=== PATIENT | female | born 1940 | race African-American/Black ===

== ENCOUNTER → 2016-06-01 | Outpatient (CLI) | payer MEDICARE, MEDICAID ==
[~2016-06-01] MED LIST: ACULAR 3 ML3 ML; ADALAT CC30 MG PO; AFRIN 15 ML15 ML NAS; ALBUTEROL0.09 MG/A1 IH; ALDACTONE 25MG25 M1 PO; ALDACTONE PO; ANTIVERT 25MG25 MG PO; BONINE25 MG PO; CLARITIN 1010 MG/TAB PO; FERROUS SU325 MG/TAB PO; FLONASE NASAL S16 GM NS; FLONASEALLERGY NS; FOLIC ACID PO; GLUCOPHAGE500 MG/TAB PO; GLUCOTROL 5M5 MG/TAB PO; IBU800 M1 PO; LOMOTIL 0.025 M1 TAB PO; MAXITROL OPHTH3.5 GM OP; MOTRIN 800800 MG/TAB PO; NEURONTIN100 MG/CAP PO; NORCO 325 MG-51 TAB PO; OCUFLOX OPHTH DR5 ML; OCUFLOX OPHTH DR5 ML OP; OMNIPRED 5 ML5 ML; PHENERGAN 25 TA25 MG PO; PREDNISONE20 MG PO; PRILOSEC 20MG20 MG PO; PRILOSEC10 MG PO; PROAIR HFA0.09 MG/AC IH; PROBIOTIC ACID1 EAC3 PO; PROBIOTIC FORMU1 CAP PO; PROCARDIA XL 3030 MG PO; PROCARDIA10 MG PO; PROVENTIL0.09 MG/A1 IH; REGLAN 10MG10 MG/TAB PO; REMERON 15M15 MG/TA1 PO; SINGULAIR 110 MG/TAB PO; SLOW-MAG 106 MG1 ECT PO; SYNTHROID 0.0.025 MG PO; SYNTHROID0.05 MG/TA PO; ULTRAM 50MG TAB50 MG PO; VANCOCIN H125 MG/CAP PO; VITAMIN C250250 MG PO; VITAMIN D32000 I1 PO; VITAMIN D32000 IU PO; ZANTAC 150MG T150 MG PO; ZITHROMAX 250M250 MG PO
== END ==
LOC: COL.RAD 08:54
DX: M75.82 Other shoulder lesions, left shoulder (principal); M19.012 Primary osteoarthritis, left shoulder; S46.812A Strain of other muscles, fascia and tendons at shoulder and upper arm level, left arm, initial encounter

== ENCOUNTER 2016-07-05 12:42 | Inpatient (IN) | payer MEDICARE, MEDICAID ==
[~2016-07-05] VITALS: Ht 157.5 cm; Wt 67.8 kg
[~2016-07-05 12:42] MED LIST changes: -ACULAR 3 ML3 ML; -ADALAT CC30 MG PO; -AFRIN 15 ML15 ML NAS; -BONINE25 MG PO; -CLARITIN 1010 MG/TAB PO; -FLONASE NASAL S16 GM NS; -GLUCOTROL 5M5 MG/TAB PO; -IBU800 M1 PO; -LOMOTIL 0.025 M1 TAB PO; -MAXITROL OPHTH3.5 GM OP; -OCUFLOX OPHTH DR5 ML; -OCUFLOX OPHTH DR5 ML OP; -OMNIPRED 5 ML5 ML; -PREDNISONE20 MG PO; -PROAIR HFA0.09 MG/AC IH; -PROBIOTIC ACID1 EAC3 PO; -PROBIOTIC FORMU1 CAP PO; -PROVENTIL0.09 MG/A1 IH; -REGLAN 10MG10 MG/TAB PO; -SINGULAIR 110 MG/TAB PO; -ULTRAM 50MG TAB50 MG PO; -VANCOCIN H125 MG/CAP PO; -VITAMIN D32000 I1 PO; -VITAMIN D32000 IU PO; -ZANTAC 150MG T150 MG PO
[2016-07-05 13:30] LABS: HEMATOCRIT 34.3 % (37.0-47.0); HEMOGLOBIN 11.2 g/dl (12.5-16.0); MEAN CELL VOLUME 91 fl (80.0-100.0); MEAN CORPUSCULAR HEMOGLOBIN 30 pg (27.0-31.0); MEAN CORPUSCULAR HGB CONC 33 g/dl (33.0-37.0); MEAN PLATELET VOLUME 9.4 fl (7.4-10.4); PLATELET COUNT 355 K/mm3 (130-400); RED BLOOD COUNT 3.76 M/mm3 (4.10-5.30); REDCELL DISTRIBUTION WIDTH-CV 13.2 % (11.5-14.5); WHITE BLOOD COUNT 8.3 K/mm3 (4.8-10.8)
[2016-07-05 13:31] LABS: ADD PATHOLOGY DIFF REVIEW NO
[2016-07-05 13:40] LABS: BAND 7 % (0-10); BASOPHIL 1 % (0-2); NEUTROPHILS 77 % (42.0-75.2); TOTAL CELLS COUNTED 100
[2016-07-05 13:41] LABS: HYPOCHROMIA 1+
[2016-07-05 13:50] LABS: ALBUMIN 3.9 gm/dL (3.5-5.0); BILIRUBIN,TOTAL 0.8 mg/dL (0.0-1.0); C-REACTIVE PROTEIN 6.9 mg/dL (0.0-0.9); CALCIUM 8.9 mg/dL (8.4-10.2); CREATININE, serum 0.8 mg/dL (0.52-1.25); POTASSIUM 3.4 mmol/L (3.4-5.0); TOTAL PROTEIN 7.5 gm/dL (6.4-8.2)
[2016-07-05 14:40] LABS: PH 5 (5-8); SQUAMOUS EPITHELIAL 0-2 /hpf; URINE APPEARANCE Clear; URINE BACTERIA Rare /hpf; URINE BILIRUBIN Negative (NEGATIVE); URINE BLOOD 1+ (NEGATIVE); URINE COLOR Yellow; URINE GLUCOSE Negative (NEGATIVE); URINE KETONE Trace (NEGATIVE); URINE UROBILINOGEN Negative (NEGATIVE)
[2016-07-05] MEDS ORDERED: PROVENTIL0.09 MG/A1 IH (14:48)
[2016-07-05] MEDS ORDERED: FLONASE NASAL S16 GM NS (14:49)
[2016-07-05] MEDS ORDERED: VITAMIN D32000 IU PO (14:49)
[2016-07-05] MEDS ORDERED: ZANTAC 150MG T150 MG PO (14:53)
[2016-07-05] MEDS ORDERED: PROCARDIA XL 3030 MG PO (14:53)
[2016-07-05 16:58] VITALS: BP 133/52; PULSE 89; TEMP 99.9
[2016-07-05 20:24] VITALS: BP 145/50; PULSE 77; TEMP 98.6
[2016-07-05 22:21] LABS: MAGNESIUM 1.5 mg/dL (1.6-2.3)
[2016-07-06 00:09] VITALS: BP 144/50; PULSE 69; TEMP 98
[2016-07-06 04:01] VITALS: BP 152/54; PULSE 84; TEMP 98.6
[2016-07-06 07:50] LABS: MEAN CELL VOLUME 92 fl (80.0-100.0); MEAN CORPUSCULAR HGB CONC 32 g/dl (33.0-37.0); MEAN PLATELET VOLUME 9.1 fl (7.4-10.4); PLATELET COUNT 308 K/mm3 (130-400); REDCELL DISTRIBUTION WIDTH-CV 13.2 % (11.5-14.5); WHITE BLOOD COUNT 6.6 K/mm3 (4.8-10.8)
[2016-07-06 07:54] VITALS: BP 139/47; PULSE 68; TEMP 98.2
[2016-07-06 08:08] LABS: HEMATOCRIT 26.6 % (37.0-47.0); HEMOGLOBIN 8.6 g/dl (12.5-16.0); MEAN CORPUSCULAR HEMOGLOBIN 30 pg (27.0-31.0)
[2016-07-06 08:09] LABS: ADD PATHOLOGY DIFF REVIEW NO
[2016-07-06 08:10] LABS: ADJUSTED CALCIUM 8.8 mg/dL (8.4-10.2); ALBUMIN 2.9 gm/dL (3.5-5.0); BILIRUBIN,TOTAL 0.5 mg/dL (0.0-1.0); CALCIUM 7.9 mg/dL (8.4-10.2); CREATININE, serum 0.75 mg/dL (0.52-1.25); POTASSIUM 3.2 mmol/L (3.4-5.0); TOTAL PROTEIN 5.5 gm/dL (6.4-8.2)
[2016-07-06 08:40] LABS: THYROID STIMULATING HORMONE 1.26 uIU/mL (0.465-4.680)
[2016-07-06 10:08] LABS: BAND 35 % (0-10); DOHLE BODIES PRESENT; EOSINOPHIL 4 % (0-4); MYELOCYTE 1 % (0-0); NEUTROPHILS 30 % (42.0-75.2); PLATELET ESTIMATE NORMAL (NORMAL); TOTAL CELLS COUNTED 100; TOXIC GRANULATION PRESENT
[2016-07-06 11:30] VITALS: BP 125/41; PULSE 60; TEMP 98.8
[2016-07-06 12:44] LABS: RETIC % 1.5 % (0.5-3.52)
[2016-07-06 15:07] VITALS: BP 137/49; PULSE 66; TEMP 98.1
[2016-07-06 19:21] VITALS: BP 122/84; PULSE 61; TEMP 98.1
[2016-07-07] VITALS (7 sets, daily range): BP systolic 121–143; BP diastolic 41–51; PULSE 57–68; TEMP 97.6–98.7
[2016-07-08 02:35] VITALS: BP 111/41; PULSE 60; TEMP 98.5
[2016-07-08 08:08] VITALS: BP 140/56; PULSE 61; TEMP 97.6
[2016-07-08 12:35] VITALS: BP 134/47; PULSE 72; TEMP 98.1
[2016-07-08 16:49] VITALS: BP 145/61; PULSE 76; TEMP 98
[2016-07-08 20:55] VITALS: BP 143/55; PULSE 67; TEMP 98.4
[2016-07-08 23:58] VITALS: BP 159/68; PULSE 17; TEMP 98.5
[2016-07-09 04:52] VITALS: BP 157/56; PULSE 66; TEMP 97.5
[2016-07-09 07:48] VITALS: BP 147/51; PULSE 64; TEMP 98.5
[2016-07-09 11:29] VITALS: BP 152/57; PULSE 64; TEMP 99
[2016-07-09 15:44] VITALS: BP 146/53; PULSE 71; TEMP 98.4
[2016-07-09] MEDS ORDERED: PROAIR HFA0.09 MG/AC IH (17:46)
[2016-07-09] MEDS ORDERED: VANCOCIN H125 MG/CAP PO (17:46)
[2016-07-09 18:51] LABS: ADJUSTED CALCIUM 9.3 mg/dL (8.4-10.2); ALBUMIN 3.1 gm/dL (3.5-5.0); BILIRUBIN,TOTAL 0.5 mg/dL (0.0-1.0); CALCIUM 8.6 mg/dL (8.4-10.2); CREATININE, serum 0.77 mg/dL (0.52-1.25); POTASSIUM 3.8 mmol/L (3.4-5.0)
[2016-07-09 18:57] LABS: MEAN CELL VOLUME 89 fl (80.0-100.0); MEAN CORPUSCULAR HGB CONC 33 g/dl (33.0-37.0); MEAN PLATELET VOLUME 9.4 fl (7.4-10.4); PLATELET COUNT 420 K/mm3 (130-400); RED BLOOD COUNT 3.26 M/mm3 (4.10-5.30); REDCELL DISTRIBUTION WIDTH-CV 13.3 % (11.5-14.5); WHITE BLOOD COUNT 11.3 K/mm3 (4.8-10.8)
[2016-07-09 18:58] LABS: HEMATOCRIT 29.1 % (37.0-47.0); HEMOGLOBIN 9.6 g/dl (12.5-16.0); MEAN CORPUSCULAR HEMOGLOBIN 29 pg (27.0-31.0)
[2016-07-09 20:37] VITALS: BP 133/59; PULSE 68; TEMP 98.2
[2016-07-10 00:06] VITALS: BP 150/59; PULSE 61; TEMP 98.8
[2016-07-10 02:49] VITALS: BP 152/90; PULSE 73; TEMP 98.1
[2016-07-10 08:38] VITALS: BP 156/64; PULSE 68; TEMP 98.4
[2016-07-10 11:55] VITALS: BP 140/48; PULSE 67; TEMP 98.1
[2016-07-10] MEDS ORDERED: GLUCOTROL 5M5 MG/TAB PO (13:03)
[2016-10-18] MEDS ORDERED: LOMOTIL 0.025 M1 TAB PO (10:26)
[2016-10-18] MEDS ORDERED: VITAMIN D32000 I1 PO (10:33)
[2016-10-18] MEDS ORDERED: ANTIVERT 25MG25 MG PO (10:34)
[2016-10-18] MEDS ORDERED: ACULAR 3 ML3 ML (10:34)
[2016-10-18] MEDS ORDERED: IBU800 M1 PO (10:34)
[2016-10-18] MEDS ORDERED: MAXITROL OPHTH3.5 GM OP (10:35)
[2016-10-18] MEDS ORDERED: OCUFLOX OPHTH DR5 ML (10:35)
[2016-10-18] MEDS ORDERED: AFRIN 15 ML15 ML NAS (10:36)
[2016-10-18] MEDS ORDERED: PREDNISONE20 MG PO (10:37)
[2016-10-18] MEDS ORDERED: ZANTAC 150MG T150 MG PO (10:38)
[2016-10-18] MEDS ORDERED: PROBIOTIC FORMU1 CAP PO (10:38)
== END 2016-07-10 14:01 | disposition home or self-care (01) | DRG 372 ==
LOC: COL.ER 12:42 → MEDICAL 14:37
PROVIDERS: Family Medicine; Internal Medicine; Internal Medicine Cardiovascular Disease; Physician Assistant
DX: A04.7 Enterocolitis due to Clostridium difficile (principal); K51.00 Ulcerative (chronic) pancolitis without complications; E87.1 Hypo-osmolality and hyponatremia; Z66 Do not resuscitate; E11.9 Type 2 diabetes mellitus without complications; E86.0 Dehydration; J44.9 Chronic obstructive pulmonary disease, unspecified; I10 Essential (primary) hypertension; Z85.118 Personal history of other malignant neoplasm of bronchus and lung; Z87.891 Personal history of nicotine dependence
CPT/HCPCS: 99223-AI; 99232-AI; 99233-AI; 99239; J0744; J1650; J2405; J3370; J3475; J7030; J7050; Q9967

== ENCOUNTER 2016-09-19 14:36 | Inpatient (IN) | payer MEDICARE, MEDICAID ==
[~2016-09-19] VITALS: Ht 157.5 cm; Wt 74.5 kg
[~2016-09-19 14:36] MED LIST changes: +FLONASE NASAL S16 GM NS; +GLUCOTROL 5M5 MG/TAB PO; +PROAIR HFA0.09 MG/AC IH; +PROVENTIL0.09 MG/A1 IH; +VANCOCIN H125 MG/CAP PO; +VITAMIN D32000 IU PO; +ZANTAC 150MG T150 MG PO
[2016-09-19 15:40] LABS: BASO % 0.3 % (0.0-2.0); EOS # 0.2 (0.0-0.7); EOS % 1.8 % (0-4.0); GRAN # 9.3 (1.4-6.5); GRAN % 76.4 % (42.2-75.2); LYMPH # 1.9 (1.2-3.4); LYMPH % 15.5 % (20.0-51.0); MEAN CELL VOLUME 91 fl (80.0-100.0); MEAN CORPUSCULAR HGB CONC 32 g/dl (33.0-37.0); MEAN PLATELET VOLUME 9.4 fl (7.4-10.4); MONO # 0.7 (0.1-0.6); MONO % 5.5 % (1.7-9.3); PLATELET COUNT 378 K/mm3 (130-400); RED BLOOD COUNT 3.54 M/mm3 (4.10-5.30); REDCELL DISTRIBUTION WIDTH-CV 13.3 % (11.5-14.5); WHITE BLOOD COUNT 12.2 K/mm3 (4.8-10.8)
[2016-09-19 15:42] LABS: HEMATOCRIT 32.1 % (37.0-47.0); HEMOGLOBIN 10.3 g/dl (12.5-16.0); MEAN CORPUSCULAR HEMOGLOBIN 29 pg (27.0-31.0)
[2016-09-19 15:47] LABS: INR 1.1 (0.8-3.0); PROTHROMBIN TIME 11.9 SECONDS (9.7-12.8)
[2016-09-19 15:53] LABS: ADJUSTED CALCIUM 8.9 mg/dL (8.4-10.2); ALBUMIN 4.4 gm/dL (3.5-5.0); BILIRUBIN,TOTAL 0.7 mg/dL (0.0-1.0); C-REACTIVE PROTEIN 6.5 mg/dL (0.0-0.9); CALCIUM 9.2 mg/dL (8.4-10.2); CREATININE, serum 0.7 mg/dL (0.52-1.25); POTASSIUM 3.6 mmol/L (3.4-5.0); TOTAL PROTEIN 8.2 gm/dL (6.4-8.2)
[2016-09-19 16:02] LABS: TROPONIN-I 0.013 ng/mL (0.000-0.034)
[2016-09-19] MEDS ORDERED: CLARITIN 1010 MG/TAB PO (18:18)
[2016-09-19 18:41] VITALS: BP 144/67; PULSE 77; TEMP 99.5
[2016-09-19 23:34] VITALS: BP 142/53; PULSE 62; TEMP 97.8
[2016-09-20 03:43] VITALS: BP 149/63; PULSE 61; TEMP 97.5
[2016-09-20 07:41] VITALS: BP 134/38; PULSE 73; TEMP 97.8
[2016-09-20 08:59] LABS: BASO % 0.3 % (0.0-2.0); EOS # 0.3 (0.0-0.7); EOS % 2.9 % (0-4.0); GRAN # 5.8 (1.4-6.5); GRAN % 58.5 % (42.2-75.2); LYMPH % 30.8 % (20.0-51.0); MEAN CELL VOLUME 93 fl (80.0-100.0); MEAN CORPUSCULAR HGB CONC 32 g/dl (33.0-37.0); MEAN PLATELET VOLUME 9.4 fl (7.4-10.4); MONO # 0.7 (0.1-0.6); MONO % 7.2 % (1.7-9.3); PLATELET COUNT 355 K/mm3 (130-400); RED BLOOD COUNT 3.33 M/mm3 (4.10-5.30); REDCELL DISTRIBUTION WIDTH-CV 13.3 % (11.5-14.5); WHITE BLOOD COUNT 9.9 K/mm3 (4.8-10.8)
[2016-09-20 09:02] LABS: HEMATOCRIT 30.8 % (37.0-47.0); HEMOGLOBIN 9.8 g/dl (12.5-16.0); MEAN CORPUSCULAR HEMOGLOBIN 29 pg (27.0-31.0)
[2016-09-20 09:07] LABS: ADJUSTED CALCIUM 8.9 mg/dL (8.4-10.2); ALBUMIN 3.9 gm/dL (3.5-5.0); BILIRUBIN,TOTAL 0.6 mg/dL (0.0-1.0); CALCIUM 8.8 mg/dL (8.4-10.2); CREATININE, serum 0.71 mg/dL (0.52-1.25); POTASSIUM 3.3 mmol/L (3.4-5.0); TOTAL PROTEIN 7.4 gm/dL (6.4-8.2)
[2016-09-20 12:20] VITALS: BP 127/48; PULSE 70; TEMP 98.2
[2016-09-20 16:25] VITALS: BP 128/54; BP 139/55; PULSE 69; PULSE 73; TEMP 98.5
[2016-09-21 09:30] VITALS: BP 138/49; PULSE 78; TEMP 98.8
[2016-09-21 11:46] VITALS: BP 126/50; PULSE 73; TEMP 98.2
[2016-09-21 15:30] VITALS: BP 136/55; PULSE 71; TEMP 98
[2016-09-21 16:47] LABS: BASO % 0.3 % (0.0-2.0); EOS # 0.3 (0.0-0.7); EOS % 3.2 % (0-4.0); GRAN # 6.3 (1.4-6.5); GRAN % 65.7 % (42.2-75.2); LYMPH # 2.4 (1.2-3.4); LYMPH % 24.7 % (20.0-51.0); MEAN CELL VOLUME 89 fl (80.0-100.0); MEAN CORPUSCULAR HGB CONC 33 g/dl (33.0-37.0); MEAN PLATELET VOLUME 9.5 fl (7.4-10.4); MONO # 0.5 (0.1-0.6); MONO % 5.6 % (1.7-9.3); PLATELET COUNT 359 K/mm3 (130-400); RED BLOOD COUNT 3.45 M/mm3 (4.10-5.30); REDCELL DISTRIBUTION WIDTH-CV 13.2 % (11.5-14.5); WHITE BLOOD COUNT 9.6 K/mm3 (4.8-10.8)
[2016-09-21 16:53] LABS: HEMATOCRIT 30.7 % (37.0-47.0); HEMOGLOBIN 10.1 g/dl (12.5-16.0); MEAN CORPUSCULAR HEMOGLOBIN 29 pg (27.0-31.0)
[2016-09-21 17:00] LABS: CALCIUM 9.1 mg/dL (8.4-10.2); CREATININE, serum 0.61 mg/dL (0.52-1.25); POTASSIUM 3.3 mmol/L (3.4-5.0)
[2016-09-21 19:16] VITALS: BP 132/50; PULSE 82; TEMP 98.3
[2016-09-21 23:48] VITALS: BP 146/54; PULSE 63; TEMP 98.6
[2016-09-22] VITALS (7 sets, daily range): BP systolic 112–137; BP diastolic 41–79; PULSE 68–82; TEMP 97.7–98.6
[2016-09-22 07:01] LABS: BASO % 0.3 % (0.0-2.0); EOS # 0.4 (0.0-0.7); EOS % 6.1 % (0-4.0); GRAN # 4.7 (1.4-6.5); GRAN % 66.5 % (42.2-75.2); LYMPH # 1.4 (1.2-3.4); LYMPH % 19.3 % (20.0-51.0); MEAN CELL VOLUME 91 fl (80.0-100.0); MEAN CORPUSCULAR HGB CONC 32 g/dl (33.0-37.0); MEAN PLATELET VOLUME 9.4 fl (7.4-10.4); MONO # 0.5 (0.1-0.6); MONO % 7.4 % (1.7-9.3); PLATELET COUNT 350 K/mm3 (130-400); RED BLOOD COUNT 3.08 M/mm3 (4.10-5.30); REDCELL DISTRIBUTION WIDTH-CV 13.3 % (11.5-14.5); WHITE BLOOD COUNT 7.1 K/mm3 (4.8-10.8)
[2016-09-22 07:02] LABS: HEMATOCRIT 28.1 % (37.0-47.0); MEAN CORPUSCULAR HEMOGLOBIN 29 pg (27.0-31.0)
[2016-09-22 07:13] LABS: CALCIUM 8.8 mg/dL (8.4-10.2); CREATININE, serum 0.68 mg/dL (0.52-1.25); MAGNESIUM 1.6 mg/dL (1.6-2.3); POTASSIUM 3.2 mmol/L (3.4-5.0)
[2016-09-23 03:14] VITALS: BP 138/53; PULSE 67; TEMP 98.4
[2016-09-23 07:35] VITALS: BP 134/54; PULSE 69; TEMP 98.2
[2016-09-23 09:03] LABS: BASO % 0.3 % (0.0-2.0); EOS # 0.6 (0.0-0.7); EOS % 6.1 % (0-4.0); GRAN # 5.8 (1.4-6.5); GRAN % 64.3 % (42.2-75.2); LYMPH % 22.1 % (20.0-51.0); MEAN CELL VOLUME 89 fl (80.0-100.0); MEAN CORPUSCULAR HGB CONC 33 g/dl (33.0-37.0); MEAN PLATELET VOLUME 9.3 fl (7.4-10.4); MONO # 0.6 (0.1-0.6); MONO % 6.8 % (1.7-9.3); PLATELET COUNT 338 K/mm3 (130-400); RED BLOOD COUNT 3.25 M/mm3 (4.10-5.30); REDCELL DISTRIBUTION WIDTH-CV 13.3 % (11.5-14.5); WHITE BLOOD COUNT 9.1 K/mm3 (4.8-10.8)
[2016-09-23 09:14] LABS: HEMOGLOBIN 9.5 g/dl (12.5-16.0); MEAN CORPUSCULAR HEMOGLOBIN 29 pg (27.0-31.0)
[2016-09-23 09:21] LABS: CALCIUM 9.2 mg/dL (8.4-10.2); CREATININE, serum 0.64 mg/dL (0.52-1.25)
[2016-09-23 11:39] VITALS: BP 127/54; PULSE 77; TEMP 97.8
[2016-09-23 12:13] LABS: INR 1.1 (0.8-3.0); PROTHROMBIN TIME 12.1 SECONDS (9.7-12.8)
[2016-09-23 15:15] VITALS: BP 132/62; PULSE 70; TEMP 98
[2016-09-23 19:44] VITALS: BP 136/45; PULSE 70; TEMP 97.9
[2016-09-23 22:21] VITALS: BP 129/50; PULSE 64; TEMP 98.3
[2016-09-24 04:17] VITALS: BP 127/74; PULSE 79; TEMP 98.3
[2016-09-24 07:52] VITALS: BP 136/47; PULSE 73; TEMP 98.2
[2016-09-24 12:47] VITALS: BP 122/56; PULSE 86
[2016-09-24 15:28] VITALS: BP 107/74; PULSE 75; TEMP 97.5
[2016-09-24 19:41] VITALS: BP 126/50; PULSE 73; TEMP 98.1
[2016-09-24 23:46] VITALS: BP 156/63; PULSE 76; TEMP 97.7
[2016-09-25 03:43] VITALS: BP 151/56; PULSE 70; TEMP 97.5
[2016-09-25 07:31] VITALS: BP 126/52; PULSE 72; TEMP 97.9
[2016-09-25 10:56] LABS: CALCIUM 9.5 mg/dL (8.4-10.2); CREATININE, serum 0.7 mg/dL (0.52-1.25); MAGNESIUM 1.6 mg/dL (1.6-2.3); POTASSIUM 4.1 mmol/L (3.4-5.0)
[2016-09-25 11:20] VITALS: BP 136/76; PULSE 70; TEMP 98.1
[2016-09-25] MEDS ORDERED: LOMOTIL 0.025 M1 TAB PO (13:33)
[2016-10-18] MEDS ORDERED: LOMOTIL 0.025 M1 TAB PO (10:26)
[2016-10-18] MEDS ORDERED: VITAMIN D32000 I1 PO (10:33)
[2016-10-18] MEDS ORDERED: IBU800 M1 PO (10:34)
[2016-10-18] MEDS ORDERED: ANTIVERT 25MG25 MG PO (10:34)
[2016-10-18] MEDS ORDERED: ACULAR 3 ML3 ML (10:34)
[2016-10-18] MEDS ORDERED: MAXITROL OPHTH3.5 GM OP (10:35)
[2016-10-18] MEDS ORDERED: OCUFLOX OPHTH DR5 ML (10:35)
[2016-10-18] MEDS ORDERED: AFRIN 15 ML15 ML NAS (10:36)
[2016-10-18] MEDS ORDERED: PREDNISONE20 MG PO (10:37)
[2016-10-18] MEDS ORDERED: ZANTAC 150MG T150 MG PO (10:38)
[2016-10-18] MEDS ORDERED: PROBIOTIC FORMU1 CAP PO (10:38)
== END 2016-09-25 14:40 | disposition home or self-care (01) | DRG 195 ==
LOC: COL.ER 14:36 → MEDICAL 17:09
PROVIDERS: Emergency Medicine; Internal Medicine; Internal Medicine Interventional Cardiology; Nurse Practitioner Family; Physician Assistant
DX: J18.9 Pneumonia, unspecified organism (principal); I10 Essential (primary) hypertension; E11.9 Type 2 diabetes mellitus without complications; Z85.118 Personal history of other malignant neoplasm of bronchus and lung; Z87.891 Personal history of nicotine dependence; D64.9 Anemia, unspecified; K58.0 Irritable bowel syndrome with diarrhea; K21.9 Gastro-esophageal reflux disease without esophagitis; E87.6 Hypokalemia; I16.0 Hypertensive urgency
CPT/HCPCS: 99223-AI; 99232-AI; 99233-AI; 99239; A9585; J0456; J0696; J1650; J1815; J7030; J7050

== ENCOUNTER 2016-10-01 09:57 | Emergency (ER) | payer MEDICARE, MEDICAID ==
[~2016-10-01] VITALS: Ht 157.5 cm; Wt 70.0 kg
[~2016-10-01 09:57] MED LIST changes: +CLARITIN 1010 MG/TAB PO; +LOMOTIL 0.025 M1 TAB PO
[2016-10-01 10:08] VITALS: BP 193/76; TEMP 98.7
[2016-10-01 11:16] LABS: BASO % 0.4 % (0.0-2.0); EOS # 0.3 (0.0-0.7); EOS % 2.8 % (0-4.0); GRAN # 7.7 (1.4-6.5); GRAN % 75.5 % (42.2-75.2); LYMPH # 1.5 (1.2-3.4); LYMPH % 14.7 % (20.0-51.0); MEAN CELL VOLUME 90 fl (80.0-100.0); MEAN CORPUSCULAR HGB CONC 32 g/dl (33.0-37.0); MONO # 0.6 (0.1-0.6); PLATELET COUNT 520 K/mm3 (130-400); RED BLOOD COUNT 3.56 M/mm3 (4.10-5.30); REDCELL DISTRIBUTION WIDTH-CV 12.8 % (11.5-14.5); WHITE BLOOD COUNT 10.1 K/mm3 (4.8-10.8)
[2016-10-01 11:19] LABS: HEMATOCRIT 32.1 % (37.0-47.0); HEMOGLOBIN 10.4 g/dl (12.5-16.0); MEAN CORPUSCULAR HEMOGLOBIN 29 pg (27.0-31.0)
[2016-10-01 11:25] LABS: ALBUMIN 4.1 gm/dL (3.5-5.0); BILIRUBIN,TOTAL 0.5 mg/dL (0.0-1.0); CALCIUM 10.1 mg/dL (8.4-10.2); CREATININE, serum 0.73 mg/dL (0.52-1.25); POTASSIUM 3.9 mmol/L (3.4-5.0); TOTAL PROTEIN 8.2 gm/dL (6.4-8.2)
[2016-10-01] MEDS ORDERED: BONINE25 MG PO (12:58)
[2016-10-01 13:33] VITALS: PULSE 67
[2016-10-18] MEDS ORDERED: LOMOTIL 0.025 M1 TAB PO (10:26)
[2016-10-18] MEDS ORDERED: VITAMIN D32000 I1 PO (10:33)
[2016-10-18] MEDS ORDERED: ANTIVERT 25MG25 MG PO (10:34)
[2016-10-18] MEDS ORDERED: ACULAR 3 ML3 ML (10:34)
[2016-10-18] MEDS ORDERED: IBU800 M1 PO (10:34)
[2016-10-18] MEDS ORDERED: OCUFLOX OPHTH DR5 ML (10:35)
[2016-10-18] MEDS ORDERED: MAXITROL OPHTH3.5 GM OP (10:35)
[2016-10-18] MEDS ORDERED: AFRIN 15 ML15 ML NAS (10:36)
[2016-10-18] MEDS ORDERED: PREDNISONE20 MG PO (10:37)
[2016-10-18] MEDS ORDERED: ZANTAC 150MG T150 MG PO (10:38)
[2016-10-18] MEDS ORDERED: PROBIOTIC FORMU1 CAP PO (10:38)
== END 2016-10-01 13:34 | disposition home or self-care (01) ==
LOC: COL.ER 09:57
PROVIDERS: Family Medicine
DX: J18.9 Pneumonia, unspecified organism (principal); E86.0 Dehydration; R42 Dizziness and giddiness; I10 Essential (primary) hypertension; J44.9 Chronic obstructive pulmonary disease, unspecified
CPT/HCPCS: J2405; J7030

== ENCOUNTER 2016-10-09 11:02 | Emergency (ER) | payer MEDICARE, MEDICAID ==
[~2016-10-09] VITALS: Ht 157.5 cm; Wt 70.9 kg
[~2016-10-09 11:02] MED LIST changes: +BONINE25 MG PO
[2016-10-09 11:03] VITALS: TEMP 99.1
[2016-10-09 11:31] LABS: BASO # 0.1 (0.0-0.2); BASO % 0.5 % (0.0-2.0); EOS # 0.3 (0.0-0.7); GRAN # 7.5 (1.4-6.5); GRAN % 70.5 % (42.2-75.2); LYMPH % 18.5 % (20.0-51.0); MEAN CELL VOLUME 89 fl (80.0-100.0); MEAN CORPUSCULAR HGB CONC 33 g/dl (33.0-37.0); MEAN PLATELET VOLUME 8.9 fl (7.4-10.4); MONO # 0.8 (0.1-0.6); MONO % 7.2 % (1.7-9.3); PLATELET COUNT 527 K/mm3 (130-400); RED BLOOD COUNT 3.48 M/mm3 (4.10-5.30); REDCELL DISTRIBUTION WIDTH-CV 13.3 % (11.5-14.5); WHITE BLOOD COUNT 10.6 K/mm3 (4.8-10.8)
[2016-10-09 11:38] LABS: HEMATOCRIT 30.9 % (37.0-47.0); HEMOGLOBIN 10.1 g/dl (12.5-16.0); MEAN CORPUSCULAR HEMOGLOBIN 29 pg (27.0-31.0)
[2016-10-09 11:46] LABS: ADJUSTED CALCIUM 9.5 mg/dL (8.4-10.2); ALANINE AMINOTRANSFERASE 40 U/L (9-52); ALBUMIN 4.1 gm/dL (3.5-5.0); ALKALINE PHOSPHATASE 137 U/L (50-136); ANION GAP 13 mmol/L (7-16); BILIRUBIN,TOTAL 0.6 mg/dL (0.0-1.0); BLOOD UREA NITROGEN 8 mg/dL (7-17); CALCIUM 9.6 mg/dL (8.4-10.2); CARBON DIOXIDE 23 mmol/L (22-30); CHLORIDE 104 mmol/L (98-107); CREATININE, serum 0.65 mg/dL (0.52-1.25); GLUCOSE 103 mg/dL (74-106); POTASSIUM 3.8 mmol/L (3.4-5.0); SODIUM 139 mmol/L (137-145)
[2016-10-09 11:51] LABS: ACETAMINOPHEN < 10 ug/mL (10-30)
[2016-10-09] MEDS ORDERED: SINGULAIR 110 MG/TAB PO (11:51)
[2016-10-09 11:59] LABS: TROPONIN-I < 0.012 ng/mL (0.000-0.034)
[2016-10-09 12:19] LABS: B-TYPE NATRIURETIC PEPTIDE 580 pg/mL (0-450)
[2016-10-09] MEDS ORDERED: REGLAN 10MG10 MG/TAB PO (13:09)
[2016-10-09] MEDS ORDERED: ULTRAM 50MG TAB50 MG PO (13:09)
[2016-10-09 13:41] LABS: ERYTHROCYTE SEDIMENTATION RATE 102 mm/hr (0-30)
[2016-10-09 13:42] LABS: C-REACTIVE PROTEIN 3.8 mg/dL (0.0-0.9)
[2016-10-09] MEDS ORDERED: PREDNISONE20 MG PO (13:57)
[2016-10-09 14:08] VITALS: BP 162/69; PULSE 72
[2016-10-18] MEDS ORDERED: LOMOTIL 0.025 M1 TAB PO (10:26)
[2016-10-18] MEDS ORDERED: VITAMIN D32000 I1 PO (10:33)
[2016-10-18] MEDS ORDERED: ACULAR 3 ML3 ML (10:34)
[2016-10-18] MEDS ORDERED: IBU800 M1 PO (10:34)
[2016-10-18] MEDS ORDERED: ANTIVERT 25MG25 MG PO (10:34)
[2016-10-18] MEDS ORDERED: OCUFLOX OPHTH DR5 ML (10:35)
[2016-10-18] MEDS ORDERED: MAXITROL OPHTH3.5 GM OP (10:35)
[2016-10-18] MEDS ORDERED: AFRIN 15 ML15 ML NAS (10:36)
[2016-10-18] MEDS ORDERED: PREDNISONE20 MG PO (10:37)
[2016-10-18] MEDS ORDERED: PROBIOTIC FORMU1 CAP PO (10:38)
[2016-10-18] MEDS ORDERED: ZANTAC 150MG T150 MG PO (10:38)
== END 2016-10-09 14:20 | disposition home or self-care (01) ==
LOC: COL.ER 11:02
PROVIDERS: Emergency Medicine
DX: R51 Headache (principal); R70.0 Elevated erythrocyte sedimentation rate; R53.1 Weakness; R42 Dizziness and giddiness; G43.909 Migraine, unspecified, not intractable, without status migrainosus; I10 Essential (primary) hypertension; E11.9 Type 2 diabetes mellitus without complications; Z85.118 Personal history of other malignant neoplasm of bronchus and lung
CPT/HCPCS: J1100; J1110; J1170; J1200; J2405; J2765; J7030; J7512

== ENCOUNTER 2016-10-19 10:32 | Day surgery (SDC) | payer MEDICARE, MEDICAID ==
[~2016-10-19] VITALS: Ht 158.8 cm; Wt 72.6 kg
[~2016-10-19 10:32] MED LIST changes: +ACULAR 3 ML3 ML; +AFRIN 15 ML15 ML NAS; +IBU800 M1 PO; +MAXITROL OPHTH3.5 GM OP; +OCUFLOX OPHTH DR5 ML; +PREDNISONE20 MG PO; +PROBIOTIC FORMU1 CAP PO; +REGLAN 10MG10 MG/TAB PO; +SINGULAIR 110 MG/TAB PO; +ULTRAM 50MG TAB50 MG PO; +VITAMIN D32000 I1 PO
[2016-10-19 11:37] VITALS: BP 169/69; PULSE 59; TEMP 97.9
[2016-10-19 13:00] VITALS: BP 181/81; PULSE 68; TEMP 98.2
== END 2016-10-19 13:15 | disposition home or self-care (01) ==
LOC: SDCO 10:32
DX: G44.85 Primary stabbing headache (principal); R70.0 Elevated erythrocyte sedimentation rate; E11.9 Type 2 diabetes mellitus without complications; I10 Essential (primary) hypertension; F32.9 Major depressive disorder, single episode, unspecified; E03.9 Hypothyroidism, unspecified; M19.90 Unspecified osteoarthritis, unspecified site; I73.00 Raynaud's syndrome without gangrene; G43.909 Migraine, unspecified, not intractable, without status migrainosus; J45.909 Unspecified asthma, uncomplicated; K21.9 Gastro-esophageal reflux disease without esophagitis; R42 Dizziness and giddiness; Z80.3 Family history of malignant neoplasm of breast; Z80.9 Family history of malignant neoplasm, unspecified; Z90.2 Acquired absence of lung [part of]; Z90.710 Acquired absence of both cervix and uterus; Z79.4 Long term (current) use of insulin; Z85.118 Personal history of other malignant neoplasm of bronchus and lung; Z96.651 Presence of right artificial knee joint
CPT/HCPCS: J2250; J2704

== ENCOUNTER 2016-11-22 09:34 | Day surgery (SDC) | payer MEDICARE, MEDICAID ==
[~2016-11-22] VITALS: Ht 158.8 cm; Wt 71.9 kg
[2016-11-22] MEDS ORDERED: LOMOTIL 0.025 M1 TAB PO (09:52)
[2016-11-22] MEDS ORDERED: REGLAN 10MG10 MG/TAB PO (09:58)
[2016-11-22] MEDS ORDERED: MAXITROL OPHTH3.5 GM OP (09:59)
[2016-11-22] MEDS ORDERED: ADALAT CC30 MG PO (09:59)
[2016-11-22] MEDS ORDERED: OCUFLOX OPHTH DR5 ML OP (09:59)
[2016-11-22] MEDS ORDERED: OMNIPRED 5 ML5 ML (10:00)
[2016-11-22] MEDS ORDERED: PREDNISONE20 MG PO (10:01)
[2016-11-22] MEDS ORDERED: PROBIOTIC ACID1 EAC3 PO (10:01)
[2016-11-22] MEDS ORDERED: ZANTAC 150MG T150 MG PO (10:02)
[2016-11-22] MEDS ORDERED: ULTRAM 50MG TAB50 MG PO (10:02)
[2016-11-22 10:24] VITALS: BP 143/58; PULSE 87; TEMP 97.8
[2016-11-22 12:03] VITALS: BP 152/66; PULSE 77; TEMP 98.6
--- NOTE | 2016-11-22 12:03 | NUR ---
The patient arrived back to [place] [facility] from the Operating Room at this time. The patient appears alert and oriented and denies any pain at this time. The patient's incision to her right mandaen appears without redness or edema and is open to air at this time. Post operative vital signs were started at this time. The patient's daughter was brought back to be at her bedside at this time. The patient requests to try some water at this time. Call light is within reach. Will continue to monitor the patient.
[2016-11-22] MEDS ORDERED: NORCO 325 MG-51 TAB PO (12:07)
[2016-11-22 12:18] VITALS: BP 155/75; PULSE 72
--- NOTE | 2016-11-22 12:18 | NUR ---
The patient just returned to her room from the bathroom and appeared to tolerate the activity well. The patient voided without difficulty. The patient appeared to tolerate the water well and requests to try some coffee and a muffin at this time. The patient's daughter remains at her bedside at this time. Will continue to monitor the patient.
[2016-11-22 12:33] VITALS: BP 154/81; PULSE 72
--- NOTE | 2016-11-22 12:33 | NUR ---
The patient appears to be tolerating the muffin and coffee well and voices a desire to be discharged home after her next set of vital signs. Call light is within reach. The patient continues to deny any pain or nausea at this time.
[2016-11-22 12:48] VITALS: BP 153/68; PULSE 72
--- NOTE | 2016-11-22 12:48 | NUR ---
Discharge instructions were reviewed with the patient and her daugther at this time. They both verbalized understanding and have no questions for the nurse at this time. The patient's IV to her left wrist was removed and a pressure dressing was applied to the site. The patient's daughter is going to go pull the car up while the nurse assists the patient to get dressed.
--- NOTE | 2016-11-22 13:00 | NUR ---
The patient was escorted out via wheelchair to a private vehicle by PETER Boo. The patient's belongings and discharge paperwork were sent with her. The patient's daughter is present to drive her home.
[2017-11-02] MEDS ORDERED: BUSPIRONE HCL7.5 MG PO (07:14)
[2017-11-02] MEDS ORDERED: ALDACTONE50 MG PO (07:14)
[2017-11-02] MEDS ORDERED: VENTOLIN0.09 MG IH (07:15)
[2017-11-02] MEDS ORDERED: ZANTAC 150MG T150 MG PO (07:16)
[2017-11-02] MEDS ORDERED: NEURONTIN100 MG/CAP PO (07:16)
[2017-11-02] MEDS ORDERED: ULTRAM 50MG TAB50 MG PO (10:15)
[2017-11-02] MEDS ORDERED: TUSS PO (10:33)
[2017-11-02] MEDS ORDERED: ZOFRAN 4MG T4 MG/TAB PO (11:09)
[2018-02-22] MEDS ORDERED: ZESTRIL 10MG10 MG PO ×2 (10:34)
[2018-07-20] MEDS ORDERED: TYLENOL SU650 MG/SUP RC (00:46)
[2018-07-20] MEDS ORDERED: ACULAR 3 ML3 ML OD (00:47)
[2018-07-20] MEDS ORDERED: BREO IH (00:48)
[2018-07-20] MEDS ORDERED: GENTLE LAXATIVE10 MG RC (00:48)
[2018-07-20] MEDS ORDERED: THE MEDICINE S200 M2 PO (00:48)
[2018-07-20] MEDS ORDERED: COREG12.5 MG PO (00:49)
[2018-07-20] MEDS ORDERED: LEVOXYL0.05 MG PO (00:50)
[2018-07-20] MEDS ORDERED: OCUFLOX OPHTH DR5 ML OD (00:52)
[2018-07-20] MEDS ORDERED: OMEGA-3 1000 MG1 CAP PO (00:52)
[2018-07-20] MEDS ORDERED: PREDFORTE5ML OD (00:54)
[2018-07-20] MEDS ORDERED: ULTRAM 50MG TAB50 MG PO (00:55)
[2018-07-20] MEDS ORDERED: SINGULAIR 110 MG/TAB PO (00:55)
[2018-07-20] MEDS ORDERED: NEURONTIN100 MG/CAP PO (02:07)
[2018-07-20] MEDS ORDERED: MUCINEX 60600 MG/TA1 PO (02:10)
[2018-07-20] MEDS ORDERED: IMODIUM 2MG CAPS2 MG PO (02:11)
[2018-07-20] MEDS ORDERED: GOOD NEIGH1200 MG/15 PO (02:13)
[2018-07-20] MEDS ORDERED: MYLANTA 150 ML150 M1 PO (02:15)
[2018-07-20] MEDS ORDERED: TYLENOL 325MG325 MG PO (02:22)
[2018-07-20] MEDS ORDERED: VITAMIN D3500 UNIT/5 PO (02:25)
[2018-07-24] MEDS ORDERED: PLAVIX 75MG TAB75 MG PO (09:43)
[2018-07-24] MEDS ORDERED: BUSPIRONE HCL7.5 MG PO (09:43)
[2018-07-24] MEDS ORDERED: NORCO 325 MG-51 TAB PO (09:47)
[2018-07-25] MEDS ORDERED: OMNICEF 300MG300 MG PO (13:32)
[2018-07-25] MEDS ORDERED: SEROQUEL 2525 MG/TAB PO ×2 (13:32)
== END 2016-11-22 13:00 | disposition home or self-care (01) ==
LOC: SDCO 09:34
DX: R70.0 Elevated erythrocyte sedimentation rate (principal); G43.909 Migraine, unspecified, not intractable, without status migrainosus; I10 Essential (primary) hypertension; E11.9 Type 2 diabetes mellitus without complications; J45.909 Unspecified asthma, uncomplicated; M19.90 Unspecified osteoarthritis, unspecified site; E03.9 Hypothyroidism, unspecified; K21.9 Gastro-esophageal reflux disease without esophagitis; Z90.710 Acquired absence of both cervix and uterus; Z90.2 Acquired absence of lung [part of]; Z80.9 Family history of malignant neoplasm, unspecified; Z83.3 Family history of diabetes mellitus; Z96.651 Presence of right artificial knee joint; Z85.118 Personal history of other malignant neoplasm of bronchus and lung
CPT/HCPCS: J0690; J2704; J3010; J7120

== ENCOUNTER → 2016-11-28 | Outpatient (CLI) | payer MEDICARE, MEDICAID ==
[~2016-11-28] MED LIST changes: +ADALAT CC30 MG PO; +OCUFLOX OPHTH DR5 ML OP; +OMNIPRED 5 ML5 ML; +PROBIOTIC ACID1 EAC3 PO
== END ==
LOC: BHSO 15:02
DX: F41.1 Generalized anxiety disorder (principal)

== ENCOUNTER → 2017-01-02 | Outpatient (CLI) | payer MEDICARE, MEDICAID | LOC: BHSO 14:39 | DX: F33.42 Major depressive disorder, recurrent, in full remission (principal) ==

== ENCOUNTER 2017-01-30 16:05 | Emergency (ER) | payer MEDICARE, MEDICAID ==
[~2017-01-30] VITALS: Ht 157.5 cm; Wt 72.3 kg
[2017-01-30 16:12] VITALS: BP 151/68; TEMP 98.4
[2017-01-30] MEDS ORDERED: LEVAQUIN 750MG750 M1 PO (17:11)
[2017-01-30 17:39] VITALS: PULSE 79
== END 2017-01-30 17:33 | disposition home or self-care (01) ==
LOC: COL.ER 16:05
DX: J18.1 Lobar pneumonia, unspecified organism (principal); I10 Essential (primary) hypertension; J44.9 Chronic obstructive pulmonary disease, unspecified; Z85.118 Personal history of other malignant neoplasm of bronchus and lung; Z87.891 Personal history of nicotine dependence

== ENCOUNTER 2017-03-20 08:49 | Emergency (ER) | payer MEDICARE, MEDICAID ==
[~2017-03-20] VITALS: Ht 157.5 cm; Wt 68.2 kg
[~2017-03-20 08:49] MED LIST changes: +LEVAQUIN 750MG750 M1 PO
[2017-03-20 08:58] VITALS: TEMP 98.8
[2017-03-20 09:45] LABS: INFLUENZA A NEGATIVE; INFLUENZA B NEGATIVE
[2017-03-20 10:14] LABS: BASO # 0.1 (0.0-0.2); BASO % 0.4 % (0.0-2.0); EOS # 0.2 (0.0-0.7); EOS % 1.4 % (0-4.0); GRAN % 74.1 % (42.2-75.2); LYMPH # 2.8 (1.2-3.4); LYMPH % 17.5 % (20.0-51.0); MEAN CELL VOLUME 93 fl (80.0-100.0); MEAN CORPUSCULAR HGB CONC 32 g/dl (33.0-37.0); MEAN PLATELET VOLUME 9.2 fl (7.4-10.4); PLATELET COUNT 325 K/mm3 (130-400); RED BLOOD COUNT 3.71 M/mm3 (4.10-5.30)
[2017-03-20 10:16] LABS: HEMATOCRIT 34.6 % (37.0-47.0); HEMOGLOBIN 11.2 g/dl (12.5-16.0); MEAN CORPUSCULAR HEMOGLOBIN 30 pg (27.0-31.0)
[2017-03-20 10:30] LABS: ALANINE AMINOTRANSFERASE 28 U/L (9-52); ALBUMIN 4.5 gm/dL (3.5-5.0); ALKALINE PHOSPHATASE 137 U/L (50-136); ANION GAP 12 mmol/L (7-16); AST,SGOT 21 U/L (15-37); BLOOD UREA NITROGEN 7 mg/dL (7-17); CARBON DIOXIDE 26 mmol/L (22-30); CHLORIDE 100 mmol/L (98-107); CREATININE, serum 0.78 mg/dL (0.52-1.25); GLUCOSE 111 mg/dL (74-106); SODIUM 137 mmol/L (137-145); TOTAL PROTEIN 7.9 gm/dL (6.4-8.2)
[2017-03-20 10:43] LABS: TROPONIN-I < 0.012 ng/mL (0.000-0.034)
[2017-03-20] MEDS ORDERED: DOXYCYCLINE 10100 MG PO (11:56)
[2017-03-20] MEDS ORDERED: PREDNISONE20 MG PO (11:56)
[2017-03-20 12:01] VITALS: BP 144/60; PULSE 90
== END 2017-03-20 12:02 | disposition home or self-care (01) ==
LOC: COL.ER 08:49
PROVIDERS: Emergency Medicine
DX: J20.9 Acute bronchitis, unspecified (principal); J43.9 Emphysema, unspecified; I10 Essential (primary) hypertension; E03.9 Hypothyroidism, unspecified; Z87.891 Personal history of nicotine dependence; Z85.118 Personal history of other malignant neoplasm of bronchus and lung; Z79.1 Long term (current) use of non-steroidal anti-inflammatories (NSAID)
CPT/HCPCS: Q9967

== ENCOUNTER 2017-05-22 13:19 | Outpatient (RCR) | payer MEDICARE, MEDICAID ==
[~2017-05-22 13:19] MED LIST changes: +DOXYCYCLINE 10100 MG PO
== END 2017-08-20 | disposition home or self-care (01) ==
LOC: MKS.ESL.PT
DX: R27.0 Ataxia, unspecified (principal)

== ENCOUNTER → 2017-05-29 | Outpatient (CLI) | payer MEDICARE, MEDICAID | LOC: COL.RAD 10:22 | DX: M47.817 Spondylosis without myelopathy or radiculopathy, lumbosacral region (principal); M48.07 Spinal stenosis, lumbosacral region; G95.89 Other specified diseases of spinal cord; M47.812 Spondylosis without myelopathy or radiculopathy, cervical region; M89.38 Hypertrophy of bone, other site; M48.02 Spinal stenosis, cervical region; Z98.890 Other specified postprocedural states | CPT/HCPCS: A9585 ==

== ENCOUNTER → 2017-10-09 | Outpatient (CLI) | payer MEDICARE, MEDICAID | LOC: BHSO 09:46 | DX: F33.41 Major depressive disorder, recurrent, in partial remission (principal) ==

== ENCOUNTER → 2017-11-27 | Outpatient (CLI) | payer MEDICARE, MEDICAID ==
[~2017-11-27] MED LIST changes: +ALDACTONE50 MG PO; +BUSPIRONE HCL7.5 MG PO; +TUSS PO; +VENTOLIN0.09 MG IH; +ZOFRAN 4MG T4 MG/TAB PO
== END ==
LOC: COL.RAD 10:04
DX: M48.061 Spinal stenosis, lumbar region without neurogenic claudication (principal); M47.812 Spondylosis without myelopathy or radiculopathy, cervical region; M43.16 Spondylolisthesis, lumbar region; Z98.890 Other specified postprocedural states; Z98.1 Arthrodesis status

== ENCOUNTER 2017-12-14 10:12 | Day surgery (SDC) | payer MEDICARE, MEDICAID ==
[~2017-12-14] VITALS: Ht 157.5 cm; Wt 68.2 kg
[2017-12-14 10:39] VITALS: BP 132/68; PULSE 85; TEMP 98.5
[2017-12-14 11:30] VITALS: BP 157/80; PULSE 83; TEMP 98.1
[2017-12-14 11:45] VITALS: BP 171/54; PULSE 78
[2017-12-14 12:00] VITALS: BP 158/63; PULSE 89
== END 2017-12-14 12:33 | disposition home or self-care (01) ==
LOC: SDCO 10:12
DX: K21.0 Gastro-esophageal reflux disease with esophagitis (principal); K29.30 Chronic superficial gastritis without bleeding; K44.9 Diaphragmatic hernia without obstruction or gangrene; E11.9 Type 2 diabetes mellitus without complications; M19.90 Unspecified osteoarthritis, unspecified site; K59.00 Constipation, unspecified; I10 Essential (primary) hypertension; D50.9 Iron deficiency anemia, unspecified; J45.909 Unspecified asthma, uncomplicated; K21.9 Gastro-esophageal reflux disease without esophagitis; G43.909 Migraine, unspecified, not intractable, without status migrainosus; E03.9 Hypothyroidism, unspecified; Z88.8 Allergy status to other drugs, medicaments and biological substances; Z90.710 Acquired absence of both cervix and uterus; Z96.651 Presence of right artificial knee joint; Z86.010 Personal history of colon polyps; Z85.118 Personal history of other malignant neoplasm of bronchus and lung
CPT/HCPCS: J2704; J7030

== ENCOUNTER 2017-12-17 16:56 | Inpatient (IN) | payer MEDICARE, MEDICAID ==
[~2017-12-17] VITALS: Ht 157.5 cm; Wt 67.1 kg
[2017-12-17] VITALS (86 sets, daily range): BP systolic 162; BP diastolic 75; PULSE 89; TEMP 98.6; O2SAT 95–100
[2017-12-17 17:48] LABS: BASO % 0.2 % (0.0-2.0); EOS % 0.2 % (0-4.0); GRAN # 10.1 (1.4-6.5); GRAN % 83.1 % (42.2-75.2); HEMOGLOBIN 10.1 g/dl (12.5-16.0); LYMPH # 1.4 (1.2-3.4); LYMPH % 11.7 % (20.0-51.0); MEAN CELL VOLUME 87 fl (80.0-100.0); MEAN CORPUSCULAR HEMOGLOBIN 30 pg (27.0-31.0); MEAN CORPUSCULAR HGB CONC 35 g/dl (33.0-37.0); MEAN PLATELET VOLUME 8.2 fl (7.4-10.4); MONO # 0.5 (0.1-0.6); MONO % 4.1 % (1.7-9.3); PLATELET COUNT 484 K/mm3 (130-400); RED BLOOD COUNT 3.36 M/mm3 (4.10-5.30); REDCELL DISTRIBUTION WIDTH-CV 12.7 % (11.5-14.5)
[2017-12-17 17:49] LABS: HEMATOCRIT 29.3 % (37.0-47.0)
[2017-12-17 18:00] LABS: BILIRUBIN,TOTAL 0.6 mg/dL (0.0-1.0); CALCIUM 9.2 mg/dL (8.4-10.2); CREATININE, serum 0.6 mg/dL (0.52-1.25); POTASSIUM 3.4 mmol/L (3.4-5.0); TOTAL PROTEIN 8.1 gm/dL (6.4-8.2)
[2017-12-17 18:11] LABS: C-REACTIVE PROTEIN 18.6 mg/dL (0.0-0.9)
[2017-12-17 19:29] LABS: COLLECTION METHOD CLEAN CATCH
[2017-12-17] MEDS ORDERED: LASIX 20MG TABL20 MG PO (19:35)
[2017-12-17] MEDS ORDERED: BUSPIRONE HCL7.5 MG PO (19:35)
[2017-12-17 19:36] LABS: MUCOUS Present /lpf; PH 7 (5-8); SQUAMOUS EPITHELIAL 0-2 /hpf; URINE APPEARANCE Clear; URINE BACTERIA None Seen /hpf; URINE BILIRUBIN Negative (NEGATIVE); URINE BLOOD Negative (NEGATIVE); URINE COLOR Straw; URINE GLUCOSE Negative (NEGATIVE); URINE KETONE Trace (NEGATIVE); URINE LEUKOCYTE ESTERASE Negative (NEGATIVE); URINE NITRATE Negative (NEGATIVE); URINE PROTEIN(semi-quant) Negative (NEGATIVE); URINE RBC 0-2 /hpf; URINE UROBILINOGEN Negative (NEGATIVE)
[2017-12-17] MEDS ORDERED: NEURONTIN400 MG/CAP PO (19:36)
[2017-12-17] MEDS ORDERED: CLARITIN 1010 MG/TAB PO (19:37)
[2017-12-17] MEDS ORDERED: LEVOXYL0.05 MG PO (19:37)
[2017-12-17] MEDS ORDERED: ADALAT CC60 MG PO (19:38)
[2017-12-17] MEDS ORDERED: ANTIVERT 25MG25 MG PO (19:38)
[2017-12-17] MEDS ORDERED: SINGULAIR 110 MG/TAB PO (19:38)
[2017-12-17] MEDS ORDERED: ALDACTONE50 MG (19:39)
[2017-12-17] MEDS ORDERED: ZOFRAN 4MG T4 MG/TAB PO (19:39)
[2017-12-17] MEDS ORDERED: ALDACTONE50 MG PO (19:40)
[2017-12-17] MEDS ORDERED: PRILOTC PO (19:40)
[2017-12-17] MEDS ORDERED: NEURONTIN100 MG/CAP PO (21:57)
[2017-12-17] MEDS ORDERED: TYLENOL 325MG325 MG PO (22:04)
[2017-12-17] MEDS ORDERED: TYLENOL 500MG500 MG PO (22:05)
[2017-12-18] VITALS (108 sets, daily range): BP systolic 136–168; BP diastolic 45–75; PULSE 59–82; TEMP 97.1–99; O2SAT 93–100
[2017-12-18 05:42] LABS: BASO % 0.2 % (0.0-2.0); EOS % 0.4 % (0-4.0); GRAN # 7.3 (1.4-6.5); GRAN % 77.1 % (42.2-75.2); LYMPH # 1.7 (1.2-3.4); LYMPH % 17.3 % (20.0-51.0); MEAN CELL VOLUME 89 fl (80.0-100.0); MEAN CORPUSCULAR HGB CONC 33 g/dl (33.0-37.0); MONO # 0.4 (0.1-0.6); MONO % 4.4 % (1.7-9.3); PLATELET COUNT 486 K/mm3 (130-400); RED BLOOD COUNT 3.17 M/mm3 (4.10-5.30); REDCELL DISTRIBUTION WIDTH-CV 12.8 % (11.5-14.5)
[2017-12-18 05:49] LABS: HEMATOCRIT 28.3 % (37.0-47.0); HEMOGLOBIN 9.4 g/dl (12.5-16.0); MEAN CORPUSCULAR HEMOGLOBIN 30 pg (27.0-31.0)
[2017-12-18 05:53] LABS: CALCIUM 8.9 mg/dL (8.4-10.2); CREATININE, serum 0.57 mg/dL (0.52-1.25); POTASSIUM 3.3 mmol/L (3.4-5.0)
[2017-12-18 18:16] LABS: ALBUMIN 3.4 gm/dL (3.5-5.0); TOTAL PROTEIN 7.2 gm/dL (6.4-8.2)
[2017-12-18 18:29] LABS: BILIRUBIN UNCONJUGATED 0.1 mg/dL (0.0-1.1); BILIRUBIN,DIRECT 0.3 mg/dL (0.0-0.4); BILIRUBIN,TOTAL 0.4 mg/dL (0.0-1.0)
[2017-12-19 03:14] VITALS: BP 150/45; PULSE 95; TEMP 98.5
[2017-12-19 06:22] LABS: BASO % 0.2 % (0.0-2.0); EOS # 0.1 (0.0-0.7); EOS % 0.7 % (0-4.0); GRAN # 9.8 (1.4-6.5); LYMPH # 1.4 (1.2-3.4); MEAN CELL VOLUME 91 fl (80.0-100.0); MEAN CORPUSCULAR HGB CONC 32 g/dl (33.0-37.0); MEAN PLATELET VOLUME 8.3 fl (7.4-10.4); MONO # 0.5 (0.1-0.6); MONO % 4.4 % (1.7-9.3); PLATELET COUNT 519 K/mm3 (130-400); RED BLOOD COUNT 3.17 M/mm3 (4.10-5.30)
[2017-12-19 06:41] LABS: CALCIUM 8.8 mg/dL (8.4-10.2); CREATININE, serum 0.66 mg/dL (0.52-1.25); POTASSIUM 3.9 mmol/L (3.4-5.0)
[2017-12-19 06:43] LABS: HEMATOCRIT 28.7 % (37.0-47.0); HEMOGLOBIN 9.3 g/dl (12.5-16.0); MEAN CORPUSCULAR HEMOGLOBIN 29 pg (27.0-31.0)
[2017-12-19 07:53] VITALS: BP 137/51; PULSE 66; TEMP 98
== END 2017-12-19 10:52 | disposition home or self-care (01) | DRG 641 ==
LOC: COL.ER 16:56 → SURG 20:47 → ICU 20:47 → SURG 12-18 04:45
PROVIDERS: Family Medicine; Nurse Practitioner; Physician Assistant
PROC: 0DB48ZX Excision of Esophagogastric Junction, Via Natural or Artificial Opening Endoscopic, Diagnostic (ICD-10-PCS; principal; 2017-12-14)
PROC: 0DB68ZX Excision of Stomach, Via Natural or Artificial Opening Endoscopic, Diagnostic (ICD-10-PCS; 2017-12-14)
PROC: 0DB38ZX Excision of Lower Esophagus, Via Natural or Artificial Opening Endoscopic, Diagnostic (ICD-10-PCS; 2017-12-14)
DX: E87.1 Hypo-osmolality and hyponatremia (principal); K22.10 Ulcer of esophagus without bleeding; E87.6 Hypokalemia; Z66 Do not resuscitate; Z85.110 Personal history of malignant carcinoid tumor of bronchus and lung; I10 Essential (primary) hypertension; K21.9 Gastro-esophageal reflux disease without esophagitis; K44.9 Diaphragmatic hernia without obstruction or gangrene; K29.70 Gastritis, unspecified, without bleeding; Z87.891 Personal history of nicotine dependence; L29.9 Pruritus, unspecified; G62.9 Polyneuropathy, unspecified; J02.9 Acute pharyngitis, unspecified
CPT/HCPCS: OP; 99222-AI; 99239; C9113; G0378; G8978-GP; G8979-GP; J1200; J1650; J2060; J2405; J7030

== ENCOUNTER 2018-01-13 19:15 | Emergency (ER) | payer MEDICARE, MEDICAID ==
[~2018-01-13] VITALS: Ht 157.5 cm; Wt 59.1 kg
[~2018-01-13 19:15] MED LIST changes: +ADALAT CC60 MG PO; +ALDACTONE50 MG; +LASIX 20MG TABL20 MG PO; +LEVOXYL0.05 MG PO; +NEURONTIN400 MG/CAP PO; +PRILOTC PO; +TYLENOL 325MG325 MG PO; +TYLENOL 500MG500 MG PO
[2018-01-13 19:22] VITALS: TEMP 97.6
[2018-01-13 20:50] LABS: BASO % 0.2 % (0.0-2.0); EOS % 0.2 % (0-4.0); GRAN # 10.9 (1.4-6.5); GRAN % 83.7 % (42.2-75.2); LYMPH # 1.5 (1.2-3.4); LYMPH % 11.1 % (20.0-51.0); MEAN CELL VOLUME 88 fl (80.0-100.0); MEAN CORPUSCULAR HGB CONC 33 g/dl (33.0-37.0); MEAN PLATELET VOLUME 8.7 fl (7.4-10.4); MONO # 0.6 (0.1-0.6); MONO % 4.4 % (1.7-9.3); PLATELET COUNT 513 K/mm3 (130-400); RED BLOOD COUNT 3.05 M/mm3 (4.10-5.30)
[2018-01-13 20:53] LABS: HEMATOCRIT 26.9 % (37.0-47.0); HEMOGLOBIN 8.9 g/dl (12.5-16.0); MEAN CORPUSCULAR HEMOGLOBIN 29 pg (27.0-31.0)
[2018-01-13 21:35] LABS: COLLECTION METHOD CLEAN CATCH
[2018-01-13 21:40] LABS: PH 6 (5-8); SQUAMOUS EPITHELIAL 0-2 /hpf; URINE APPEARANCE Clear; URINE BACTERIA None Seen /hpf; URINE BILIRUBIN Negative (NEGATIVE); URINE BLOOD Negative (NEGATIVE); URINE COLOR Straw; URINE GLUCOSE Negative (NEGATIVE); URINE KETONE Negative (NEGATIVE); URINE LEUKOCYTE ESTERASE Negative (NEGATIVE); URINE NITRATE Negative (NEGATIVE); URINE PROTEIN(semi-quant) Negative (NEGATIVE); URINE RBC 0-2 /hpf; URINE UROBILINOGEN Negative (NEGATIVE)
[2018-01-13 21:56] LABS: ALBUMIN 3.9 gm/dL (3.5-5.0); BILIRUBIN,TOTAL 0.6 mg/dL (0.0-1.0); CALCIUM 9.1 mg/dL (8.4-10.2); CREATININE, serum 0.63 mg/dL (0.52-1.25); POTASSIUM 3.5 mmol/L (3.4-5.0)
[2018-01-13] MEDS ORDERED: PHENERGAN 25 TA25 MG PO (22:30)
[2018-01-13] MEDS ORDERED: CARAFATE S1 GM/10 ML PO (22:50)
[2018-01-14 00:15] VITALS: BP 141/70; PULSE 90
== END 2018-01-14 00:15 | disposition home or self-care (01) ==
LOC: COL.ER 19:15
PROVIDERS: Emergency Medicine
DX: R51 Headache (principal); R53.81 Other malaise; R19.7 Diarrhea, unspecified; I10 Essential (primary) hypertension; F41.9 Anxiety disorder, unspecified; Z90.710 Acquired absence of both cervix and uterus
CPT/HCPCS: J1885; J2550; J7030; Q9967

== ENCOUNTER 2018-01-22 09:59 | Inpatient (IN) | payer MEDICARE, MEDICAID ==
[~2018-01-22] VITALS: Ht 160 cm; Wt 67.9 kg
[2018-01-22] VITALS (95 sets, daily range): BP systolic 121–145; BP diastolic 56–68; PULSE 75–91; TEMP 97.6–98.5; O2SAT 84–100
[~2018-01-22 09:59] MED LIST changes: +CARAFATE S1 GM/10 ML PO
[2018-01-22 11:17] LABS: COLLECTION METHOD CLEAN CATCH
[2018-01-22 11:21] LABS: BASO % 0.2 % (0.0-2.0); GRAN # 17.7 (1.4-6.5); GRAN % 85.9 % (42.2-75.2); LYMPH % 9.7 % (20.0-51.0); MEAN CELL VOLUME 86 fl (80.0-100.0); MEAN CORPUSCULAR HGB CONC 34 g/dl (33.0-37.0); MEAN PLATELET VOLUME 8.4 fl (7.4-10.4); MONO # 0.7 (0.1-0.6); MONO % 3.6 % (1.7-9.3); RED BLOOD COUNT 3.26 M/mm3 (4.10-5.30)
[2018-01-22 11:28] LABS: HEMOGLOBIN 9.4 g/dl (12.5-16.0); MEAN CORPUSCULAR HEMOGLOBIN 29 pg (27.0-31.0)
[2018-01-22 11:30] LABS: PLATELET COUNT 743 K/mm3 (130-400)
[2018-01-22 11:32] LABS: MUCOUS Present /lpf; PH 7 (5-8); URINE APPEARANCE Clear; URINE BACTERIA None Seen /hpf; URINE BILIRUBIN Negative (NEGATIVE); URINE BLOOD Negative (NEGATIVE); URINE COLOR Yellow; URINE GLUCOSE Negative (NEGATIVE); URINE KETONE 1+ (NEGATIVE); URINE LEUKOCYTE ESTERASE Trace (NEGATIVE); URINE NITRATE Negative (NEGATIVE); URINE PROTEIN(semi-quant) 2+ (NEGATIVE); URINE RBC 0-2 /hpf; URINE UROBILINOGEN Negative (NEGATIVE)
[2018-01-22 11:36] LABS: ALBUMIN 3.9 gm/dL (3.5-5.0); BILIRUBIN,TOTAL 0.8 mg/dL (0.0-1.0); CALCIUM 9.1 mg/dL (8.4-10.2); CREATININE, serum 0.52 mg/dL (0.52-1.25); TOTAL PROTEIN 7.8 gm/dL (6.4-8.2)
[2018-01-22 11:48] LABS: TROPONIN-I 0.086 ng/mL (0.000-0.034)
[2018-01-22 11:49] LABS: C-REACTIVE PROTEIN 20.7 mg/dL (0.0-0.9); POTASSIUM 2.8 mmol/L (3.4-5.0)
[2018-01-22] MEDS ORDERED: ADVIL200 MG PO (14:23)
[2018-01-22] MEDS ORDERED: ALBUTEROL0.83 MG/ML IH (14:24)
[2018-01-22] MEDS ORDERED: BREO IH (14:25)
[2018-01-22] MEDS ORDERED: REMERON 15M15 MG/TA1 PO (14:26)
[2018-01-22] MEDS ORDERED: ZANTAC 150MG T150 MG PO (14:27)
[2018-01-22] MEDS ORDERED: ALDACTONE50 MG PO (14:28)
[2018-01-22 18:18] LABS: POTASSIUM 2.8 mmol/L (3.4-5.0); TROPONIN-I 6 HR POST INITIAL 0.083 ng/mL (0.000-0.034)
[2018-01-23] VITALS (8 sets, daily range): BP systolic 118–156; BP diastolic 48–73; PULSE 69–88; TEMP 97–99.4; O2SAT 100
[2018-01-23 05:13] LABS: BASO % 0.2 % (0.0-2.0); EOS % 0.1 % (0-4.0); GRAN % 85.2 % (42.2-75.2); HEMATOCRIT 28.1 % (37.0-47.0); LYMPH # 1.6 (1.2-3.4); LYMPH % 9.2 % (20.0-51.0); MEAN CELL VOLUME 89 fl (80.0-100.0); MEAN CORPUSCULAR HEMOGLOBIN 28 pg (27.0-31.0); MEAN CORPUSCULAR HGB CONC 32 g/dl (33.0-37.0); MEAN PLATELET VOLUME 8.4 fl (7.4-10.4); MONO # 0.8 (0.1-0.6); MONO % 4.6 % (1.7-9.3); PLATELET COUNT 748 K/mm3 (130-400); RED BLOOD COUNT 3.16 M/mm3 (4.10-5.30); REDCELL DISTRIBUTION WIDTH-CV 13.2 % (11.5-14.5)
[2018-01-23 05:33] LABS: ALBUMIN 3.6 gm/dL (3.5-5.0); BILIRUBIN,TOTAL 0.3 mg/dL (0.0-1.0); CALCIUM 8.6 mg/dL (8.4-10.2); CREATININE, serum 0.59 mg/dL (0.52-1.25); POTASSIUM 3.7 mmol/L (3.4-5.0); TOTAL PROTEIN 7.3 gm/dL (6.4-8.2)
[2018-01-23 05:48] LABS: TROPONIN-I 0.089 ng/mL (0.000-0.034)
[2018-01-24] VITALS (7 sets, daily range): BP systolic 118–176; BP diastolic 51–69; PULSE 70–90; TEMP 97.5–98.9
[2018-01-24 06:13] LABS: BASO % 0.2 % (0.0-2.0); EOS % 0.2 % (0-4.0); GRAN # 16.2 (1.4-6.5); GRAN % 83.6 % (42.2-75.2); LYMPH % 10.1 % (20.0-51.0); MEAN CELL VOLUME 89 fl (80.0-100.0); MEAN CORPUSCULAR HGB CONC 32 g/dl (33.0-37.0); MEAN PLATELET VOLUME 8.5 fl (7.4-10.4); PLATELET COUNT 814 K/mm3 (130-400); RED BLOOD COUNT 3.07 M/mm3 (4.10-5.30); REDCELL DISTRIBUTION WIDTH-CV 13.4 % (11.5-14.5)
[2018-01-24 06:14] LABS: HEMATOCRIT 27.2 % (37.0-47.0); HEMOGLOBIN 8.8 g/dl (12.5-16.0); MEAN CORPUSCULAR HEMOGLOBIN 29 pg (27.0-31.0)
[2018-01-24 06:21] LABS: ALBUMIN 3.3 gm/dL (3.5-5.0); BILIRUBIN,TOTAL 0.5 mg/dL (0.0-1.0); CALCIUM 8.8 mg/dL (8.4-10.2); CREATININE, serum 0.52 mg/dL (0.52-1.25); POTASSIUM 4.1 mmol/L (3.4-5.0); TOTAL PROTEIN 7.2 gm/dL (6.4-8.2)
[2018-01-24 11:55] LABS: THYROID STIMULATING HORMONE 1.27 uIU/mL (0.465-4.680)
[2018-01-25 00:30] VITALS: BP 121/51; PULSE 63; TEMP 98.9
[2018-01-25 02:35] VITALS: BP 135/50; PULSE 69; TEMP 99.1
[2018-01-25 08:01] VITALS: BP 143/51; PULSE 71; TEMP 97.9
[2018-01-25 08:34] LABS: BASO # 0.1 (0.0-0.2); BASO % 0.3 % (0.0-2.0); EOS # 0.3 (0.0-0.7); EOS % 1.4 % (0-4.0); GRAN # 14.2 (1.4-6.5); GRAN % 76.7 % (42.2-75.2); LYMPH # 2.9 (1.2-3.4); LYMPH % 15.8 % (20.0-51.0); MEAN CELL VOLUME 90 fl (80.0-100.0); MEAN CORPUSCULAR HGB CONC 32 g/dl (33.0-37.0); MEAN PLATELET VOLUME 8.4 fl (7.4-10.4); MONO # 0.9 (0.1-0.6); PLATELET COUNT 744 K/mm3 (130-400); RED BLOOD COUNT 2.89 M/mm3 (4.10-5.30); REDCELL DISTRIBUTION WIDTH-CV 13.3 % (11.5-14.5)
[2018-01-25 08:35] LABS: HEMATOCRIT 25.9 % (37.0-47.0); HEMOGLOBIN 8.3 g/dl (12.5-16.0); MEAN CORPUSCULAR HEMOGLOBIN 29 pg (27.0-31.0)
[2018-01-25 08:37] LABS: ALBUMIN 3.4 gm/dL (3.5-5.0); BILIRUBIN,TOTAL 0.5 mg/dL (0.0-1.0); CREATININE, serum 0.64 mg/dL (0.52-1.25); POTASSIUM 3.3 mmol/L (3.4-5.0); TOTAL PROTEIN 7.1 gm/dL (6.4-8.2)
[2018-01-25 12:00] VITALS: BP 115/43; PULSE 59; TEMP 99
[2018-01-25 15:44] VITALS: BP 120/51; PULSE 73; TEMP 99.1
[2018-01-25 20:05] VITALS: BP 113/46; PULSE 63; TEMP 98.4
[2018-01-26 00:12] VITALS: BP 146/51; PULSE 71
[2018-01-26 04:32] LABS: BASO % 0.2 % (0.0-2.0); EOS # 0.2 (0.0-0.7); GRAN # 13.2 (1.4-6.5); HEMATOCRIT 23.8 % (37.0-47.0); HEMOGLOBIN 7.6 g/dl (12.5-16.0); LYMPH # 1.8 (1.2-3.4); MEAN CELL VOLUME 91 fl (80.0-100.0); MEAN CORPUSCULAR HEMOGLOBIN 29 pg (27.0-31.0); MEAN CORPUSCULAR HGB CONC 32 g/dl (33.0-37.0); MEAN PLATELET VOLUME 8.7 fl (7.4-10.4); MONO # 0.8 (0.1-0.6); MONO % 5.1 % (1.7-9.3); RED BLOOD COUNT 2.63 M/mm3 (4.10-5.30); REDCELL DISTRIBUTION WIDTH-CV 13.5 % (11.5-14.5)
[2018-01-26 04:34] LABS: PLATELET COUNT 634 K/mm3 (130-400)
[2018-01-26 04:42] LABS: CALCIUM 8.2 mg/dL (8.4-10.2); CREATININE, serum 1.11 mg/dL (0.52-1.25); POTASSIUM 3.5 mmol/L (3.4-5.0)
[2018-01-26 05:07] VITALS: BP 127/50; PULSE 72
[2018-01-26 07:39] VITALS: BP 134/52; PULSE 73; TEMP 99.9
[2018-01-26 12:16] VITALS: BP 107/46; PULSE 61; TEMP 100.2
[2018-01-26 13:08] LABS: ANGIOTENSIN CONVERTING ENZYME 25 U/L (8 - 53)
[2018-01-26 15:05] LABS: ANTIMYELOPEROXIDASE (MPO) AB >8.0 U (())
[2018-01-26 16:45] VITALS: BP 122/51; PULSE 68; TEMP 99.2
[2018-01-26 20:05] LABS: C-ANCA 7 U/mL (0-99)
[2018-01-26 20:46] VITALS: PULSE 68
== END 2018-01-26 21:45 | disposition short-term general hospital (02) | DRG 40 ==
LOC: COL.ER 09:59 → IMCU 13:09 → COL.ER 13:09 → MEDICAL 13:09 → IMCU 01-23 13:00 → MEDICAL 01-23 13:00
PROVIDERS: Emergency Medicine; Physician Assistant; Surgery
PROC: 03BT0ZX Excision of Left Temporal Artery, Open Approach, Diagnostic (ICD-10-PCS; principal; 2018-01-24 10:30)
DX: G08 Intracranial and intraspinal phlebitis and thrombophlebitis (principal); I21.A1 Myocardial infarction type 2; I82.890 Acute embolism and thrombosis of other specified veins; H05.011 Cellulitis of right orbit; E87.2 Acidosis; G81.91 Hemiplegia, unspecified affecting right dominant side; I42.2 Other hypertrophic cardiomyopathy; I10 Essential (primary) hypertension; Z85.110 Personal history of malignant carcinoid tumor of bronchus and lung; Z87.891 Personal history of nicotine dependence; D64.9 Anemia, unspecified; E87.6 Hypokalemia; H11.423 Conjunctival edema, bilateral; I27.20 Pulmonary hypertension, unspecified; I71.2 Thoracic aortic aneurysm, without rupture
CPT/HCPCS: 99232-AI; 99233-AI; 99239; A4216; C8924; J0696; J1644; J2405; J2543; J2704; J3010; J3370; J7030; J7050; J7120; Q9957; Q9967

== ENCOUNTER 2018-02-20 10:04 | Observation (INO) | payer MEDICARE, MEDICAID ==
[2018-02-20] VITALS (370 sets, daily range): BP systolic 119–128; BP diastolic 53–55; PULSE 47–52; TEMP 97.8–99.2; O2SAT 71–100
[~2018-02-20] VITALS: Ht 157.5 cm; Wt 62.4 kg
[~2018-02-20 10:04] MED LIST changes: +ADVIL200 MG PO; +ALBUTEROL0.83 MG/ML IH; +BREO IH
[2018-02-20 12:23] LABS: BASO % 0.1 % (0.0-2.0); EOS % 0.1 % (0-4.0); GRAN # 12.8 (1.4-6.5); GRAN % 85.2 % (42.2-75.2); LYMPH # 1.2 (1.2-3.4); LYMPH % 8.1 % (20.0-51.0); MEAN CELL VOLUME 88 fl (80.0-100.0); MEAN CORPUSCULAR HGB CONC 34 g/dl (33.0-37.0); MEAN PLATELET VOLUME 11.6 fl (7.4-10.4); MONO # 0.9 (0.1-0.6); MONO % 5.8 % (1.7-9.3); PLATELET COUNT 145 K/mm3 (130-400); RED BLOOD COUNT 3.07 M/mm3 (4.10-5.30); REDCELL DISTRIBUTION WIDTH-CV 15.7 % (11.5-14.5)
[2018-02-20 12:24] LABS: HEMATOCRIT 27.1 % (37.0-47.0); HEMOGLOBIN 9.2 g/dl (12.5-16.0); MEAN CORPUSCULAR HEMOGLOBIN 30 pg (27.0-31.0)
[2018-02-20 12:27] LABS: INR 1.1 (0.8-3.0)
[2018-02-20 12:42] LABS: COLLECTION METHOD CLEAN CATCH
[2018-02-20 12:53] LABS: PH 7 (5-8); SQUAMOUS EPITHELIAL None Seen /hpf; URINE APPEARANCE Clear; URINE BACTERIA None Seen /hpf; URINE BILIRUBIN Negative (NEGATIVE); URINE BLOOD 1+ (NEGATIVE); URINE COLOR Straw; URINE GLUCOSE 3+ (NEGATIVE); URINE KETONE Negative (NEGATIVE); URINE LEUKOCYTE ESTERASE Negative (NEGATIVE); URINE NITRATE Negative (NEGATIVE); URINE PROTEIN(semi-quant) 1+ (NEGATIVE); URINE RBC 0-2 /hpf; URINE UROBILINOGEN Negative (NEGATIVE); URINE WBC 0-2 /hpf
[2018-02-20 12:57] LABS: ACETONE,SERUM NEGATIVE
[2018-02-20 12:59] LABS: ALANINE AMINOTRANSFERASE 46 U/L (9-52); ALBUMIN 3.8 gm/dL (3.5-5.0); ALKALINE PHOSPHATASE 168 U/L (50-136); ANION GAP 14 mmol/L (7-16); AST,SGOT 12 U/L (15-37); BILIRUBIN,TOTAL 0.9 mg/dL (0.0-1.0); BLOOD UREA NITROGEN 18 mg/dL (7-17); CALCIUM 9.2 mg/dL (8.4-10.2); CARBON DIOXIDE 29 mmol/L (22-30); CHLORIDE 105 mmol/L (98-107); CREATININE, serum 0.73 mg/dL (0.52-1.25); POTASSIUM 3.2 mmol/L (3.4-5.0); SODIUM 147 mmol/L (137-145); TOTAL PROTEIN 6.6 gm/dL (6.4-8.2)
[2018-02-20 13:02] LABS: GLUCOSE 438 mg/dL (74-106)
[2018-02-20 13:17] LABS: TROPONIN-I 0.067 ng/mL (0.000-0.034)
[2018-02-20] MEDS ORDERED: FLONASEALLERGY NS ×2 (14:18→14:24)
[2018-02-20] MEDS ORDERED: NORVASC 10MG10 MG PO (14:19)
[2018-02-20] MEDS ORDERED: LASIX 20MG TABL20 MG PO (14:20)
[2018-02-20] MEDS ORDERED: COREG12.5 MG PO (14:20)
[2018-02-20] MEDS ORDERED: REMERON 15M15 MG/TA1 PO (14:21)
[2018-02-20] MEDS ORDERED: PREDNISONE20 MG PO (14:22)
[2018-02-20] MEDS ORDERED: PROTONIX 40MG T40 MG PO (14:23)
[2018-02-20] MEDS ORDERED: BREO IH (14:25)
[2018-02-20] MEDS ORDERED: NEURONTIN400 MG/CAP PO (14:35)
[2018-02-20] MEDS ORDERED: NEURONTIN100 MG/CAP PO (14:35)
[2018-02-20 17:22] LABS: MAGNESIUM 1.6 mg/dL (1.6-2.3)
[2018-02-20 17:49] LABS: TROPONIN-I 3 HR POST INITIAL 0.079 ng/mL (0.000-0.034)
[2018-02-20 20:00] LABS: CALCIUM 9.3 mg/dL (8.4-10.2); CREATININE, serum 0.81 mg/dL (0.52-1.25); POTASSIUM 3.2 mmol/L (3.4-5.0)
[2018-02-20 20:13] LABS: TROPONIN-I 6 HR POST INITIAL 0.079 ng/mL (0.000-0.034)
[2018-02-21] VITALS (541 sets, daily range): BP systolic 107–158; BP diastolic 44–61; PULSE 44–53; TEMP 97.6–98.8; O2SAT 57–100
[2018-02-21 05:49] LABS: GRAN # 11.9 (1.4-6.5); GRAN % 88.6 % (42.2-75.2); LYMPH # 0.9 (1.2-3.4); LYMPH % 6.8 % (20.0-51.0); MEAN CELL VOLUME 91 fl (80.0-100.0); MEAN CORPUSCULAR HGB CONC 33 g/dl (33.0-37.0); MEAN PLATELET VOLUME 9.3 fl (7.4-10.4); MONO # 0.5 (0.1-0.6); MONO % 3.8 % (1.7-9.3); PLATELET COUNT 115 K/mm3 (130-400); RED BLOOD COUNT 3.04 M/mm3 (4.10-5.30); REDCELL DISTRIBUTION WIDTH-CV 16.1 % (11.5-14.5)
[2018-02-21 05:51] LABS: HEMATOCRIT 27.5 % (37.0-47.0); MEAN CORPUSCULAR HEMOGLOBIN 30 pg (27.0-31.0)
[2018-02-21 06:02] LABS: CALCIUM 9.1 mg/dL (8.4-10.2); CHOLESTEROL RISK RATIO 3.4; CREATININE, serum 0.8 mg/dL (0.52-1.25); POTASSIUM 4.3 mmol/L (3.4-5.0)
[2018-02-21 06:32] LABS: TROPONIN-I 0.075 ng/mL (0.000-0.034)
[2018-02-22] VITALS: BP 101/45; PULSE 45; TEMP 97.6
[2018-02-22 04:00] VITALS: BP 127/54; PULSE 47; TEMP 97.9
[2018-02-22 06:42] LABS: BASO % 0.1 % (0.0-2.0); GRAN # 14.6 (1.4-6.5); LYMPH # 1.3 (1.2-3.4); MEAN CELL VOLUME 90 fl (80.0-100.0); MEAN CORPUSCULAR HGB CONC 33 g/dl (33.0-37.0); MEAN PLATELET VOLUME 10.8 fl (7.4-10.4); MONO # 0.6 (0.1-0.6); MONO % 3.7 % (1.7-9.3); PLATELET COUNT 128 K/mm3 (130-400); RED BLOOD COUNT 3.18 M/mm3 (4.10-5.30); REDCELL DISTRIBUTION WIDTH-CV 16.2 % (11.5-14.5)
[2018-02-22 06:47] LABS: HEMATOCRIT 28.6 % (37.0-47.0); HEMOGLOBIN 9.3 g/dl (12.5-16.0); MEAN CORPUSCULAR HEMOGLOBIN 29 pg (27.0-31.0)
[2018-02-22 06:59] LABS: CALCIUM 8.8 mg/dL (8.4-10.2); CREATININE, serum 0.79 mg/dL (0.52-1.25); POTASSIUM 4.1 mmol/L (3.4-5.0)
[2018-02-22 07:44] VITALS: BP 141/56; PULSE 58; TEMP 97.7
[2018-02-22] MEDS ORDERED: ASPIRIN E.C. 8181 MG PO (10:34)
[2018-02-22] MEDS ORDERED: ZESTRIL 10MG10 MG PO (10:34)
[2018-02-22] MEDS ORDERED: GLUCOPHAGE500 MG/TAB PO (10:35)
[2018-02-22] MEDS ORDERED: COREG 6.256.25 MG/TA PO (10:36)
[2018-02-22] MEDS ORDERED: KEPPRA250 MG PO (10:40)
[2018-02-22] MEDS ORDERED: KEPPRA 500MG500 MG PO (10:41)
[2018-02-22] MEDS ORDERED: DIFLUCAN 100MG100 MG PO (10:42)
[2018-02-22] MEDS ORDERED: NOVOLOG 100U100 U/M1 SQ (10:43)
[2018-02-22 10:58] VITALS: BP 101/52; PULSE 55; TEMP 98.1
[2018-02-22 13:43] VITALS: BP 101/52; PULSE 55; TEMP 98.1
== END 2018-02-22 17:13 | disposition home or self-care (01) ==
LOC: COL.ER 10:04 → ICU 13:24 → MEDICAL 02-21 22:01
PROVIDERS: Emergency Medicine; Physician Assistant
DX: G45.9 Transient cerebral ischemic attack, unspecified (principal); R56.9 Unspecified convulsions; E11.65 Type 2 diabetes mellitus with hyperglycemia; D72.829 Elevated white blood cell count, unspecified; D64.9 Anemia, unspecified; E87.6 Hypokalemia; R00.1 Bradycardia, unspecified; I10 Essential (primary) hypertension; I82.91 Chronic embolism and thrombosis of unspecified vein; I27.20 Pulmonary hypertension, unspecified; E87.1 Hypo-osmolality and hyponatremia; E03.9 Hypothyroidism, unspecified; E11.40 Type 2 diabetes mellitus with diabetic neuropathy, unspecified; F32.9 Major depressive disorder, single episode, unspecified; F41.9 Anxiety disorder, unspecified; Z90.2 Acquired absence of lung [part of]; J45.909 Unspecified asthma, uncomplicated; Z90.710 Acquired absence of both cervix and uterus; Z96.651 Presence of right artificial knee joint; Z87.891 Personal history of nicotine dependence; Z87.11 Personal history of peptic ulcer disease; Z85.118 Personal history of other malignant neoplasm of bronchus and lung; Z80.8 Family history of malignant neoplasm of other organs or systems; Z80.3 Family history of malignant neoplasm of breast; Z83.3 Family history of diabetes mellitus; Z88.8 Allergy status to other drugs, medicaments and biological substances
CPT/HCPCS: A9585; G0378; G8978-GP; G8979-GP; G8987-GO; G8988-GO; G8996-GN; G8997-GN; G9168-GN; G9169-GN; J1644; J1815; J3475; J7040; J7512

== ENCOUNTER 2018-07-12 11:06 | Emergency (ER) | payer MEDICARE, MEDICAID ==
[~2018-07-12] VITALS: Ht 162.6 cm; Wt 67.3 kg
[~2018-07-12 11:06] MED LIST changes: +ASPIRIN E.C. 8181 MG PO; +COREG 6.256.25 MG/TA PO; +COREG12.5 MG PO; +DIFLUCAN 100MG100 MG PO; +KEPPRA 500MG500 MG PO; +KEPPRA250 MG PO; +NORVASC 10MG10 MG PO; +NOVOLOG 100U100 U/M1 SQ; +PROTONIX 40MG T40 MG PO; +ZESTRIL 10MG10 MG PO
[2018-07-12 11:10] VITALS: TEMP 98.1
[2018-07-12] MEDS ORDERED: NORCO 325 MG-51 TAB PO (12:53)
[2018-07-12 13:15] VITALS: BP 126/52; PULSE 67
== END 2018-07-12 13:20 | disposition home or self-care (01) ==
LOC: COL.ER 11:06
DX: M25.511 Pain in right shoulder (principal); I10 Essential (primary) hypertension; J45.909 Unspecified asthma, uncomplicated; E03.9 Hypothyroidism, unspecified; Z87.891 Personal history of nicotine dependence; Y92.009 Unspecified place in unspecified non-institutional (private) residence as the place of occurrence of the external cause; Y93.E1 Activity, personal bathing and showering
CPT/HCPCS: J2270

== ENCOUNTER 2018-08-02 14:17 | Inpatient (IN) | payer MEDICARE, MEDICAID ==
[~2018-08-02] VITALS: Ht 157.5 cm; Wt 65.1 kg
[~2018-08-02 14:17] MED LIST changes: +ACULAR 3 ML3 ML OD; +GENTLE LAXATIVE10 MG RC; +GOOD NEIGH1200 MG/15 PO; +IMODIUM 2MG CAPS2 MG PO; +MUCINEX 60600 MG/TA1 PO; +MYLANTA 150 ML150 M1 PO; +OCUFLOX OPHTH DR5 ML OD; +OMEGA-3 1000 MG1 CAP PO; +OMNICEF 300MG300 MG PO; +PLAVIX 75MG TAB75 MG PO; +PREDFORTE5ML OD; +SEROQUEL 2525 MG/TAB PO; +THE MEDICINE S200 M2 PO; +TYLENOL SU650 MG/SUP RC; +VITAMIN D3500 UNIT/5 PO
[2018-08-02 19:33] VITALS: BP 157/63; PULSE 63; TEMP 98.2
--- NOTE | 2018-08-02 21:19 | NUR ---
Pt on floor from transfer, initial assessments complete, left Pt call light in reach, bed in lowest position, questions answered.
[2018-08-02 21:58] VITALS: BP 152/51; PULSE 66; TEMP 98.4
[2018-08-03] VITALS (12 sets, daily range): BP systolic 120–167; BP diastolic 48–57; PULSE 64–90; TEMP 97.8–98.4
[2018-08-03] MEDS ORDERED: BUSPAR DIVIDOSE15 MG PO (01:10)
[2018-08-03] MEDS ORDERED: VITAMIN D31000 I1 PO (01:11)
[2018-08-03] MEDS ORDERED: FLONASEALLERGY NS (01:12)
[2018-08-03] MEDS ORDERED: LASIX 20MG TABL20 MG PO (01:13)
[2018-08-03] MEDS ORDERED: EPA FISH OIL1 SGL PO (01:14)
[2018-08-03] MEDS ORDERED: SEROQUEL 1100 MG/TAB PO (01:17)
[2018-08-03] MEDS ORDERED: PULMICORT0.5 MG/2 M IH (01:18)
[2018-08-03] MEDS ORDERED: LUVOX 50MG50 MG/TAB PO (01:18)
[2018-08-03] MEDS ORDERED: BROVANA15 MCG/2 M IH (01:18)
[2018-08-03 01:54] LABS: BASO # 0.1 (0.0-0.2); BASO % 0.7 % (0.0-2.0); EOS # 0.4 (0.0-0.7); EOS % 3.9 % (0-4.0); GRAN # 4.9 (1.4-6.5); GRAN % 52.5 % (42.2-75.2); HEMATOCRIT 26.1 % (37.0-47.0); HEMOGLOBIN 8.4 g/dl (12.5-16.0); LYMPH # 3.1 (1.2-3.4); LYMPH % 32.6 % (20.0-51.0); MEAN CELL VOLUME 92 fl (80.0-100.0); MEAN CORPUSCULAR HEMOGLOBIN 29 pg (27.0-31.0); MEAN CORPUSCULAR HGB CONC 32 g/dl (33.0-37.0); MEAN PLATELET VOLUME 8.4 fl (7.4-10.4); MONO # 0.9 (0.1-0.6); MONO % 9.8 % (1.7-9.3); PLATELET COUNT 405 K/mm3 (130-400); RED BLOOD COUNT 2.85 M/mm3 (4.10-5.30); REDCELL DISTRIBUTION WIDTH-CV 14.3 % (11.5-14.5)
[2018-08-03 01:58] LABS: PROTHROMBIN TIME 11.5 SECONDS (9.7-12.8)
[2018-08-03 02:01] LABS: PARTIAL THROMBOPLASTIN TIME 28.4 SECONDS (26.0-37.0)
[2018-08-03 02:05] LABS: ALANINE AMINOTRANSFERASE < 6 U/L (9-52); ALBUMIN 3.7 gm/dL (3.5-5.0); ALKALINE PHOSPHATASE 97 U/L (50-136); ANION GAP 10 mmol/L (7-16); AST,SGOT 17 U/L (15-37); BILIRUBIN,TOTAL 0.4 mg/dL (0.0-1.0); BLOOD UREA NITROGEN 10 mg/dL (7-17); CALCIUM 9.5 mg/dL (8.4-10.2); CARBON DIOXIDE 25 mmol/L (22-30); CHLORIDE 101 mmol/L (98-107); CREATININE, serum 0.81 (0.52-1.25); GLUCOSE 102 mg/dL (74-106); MAGNESIUM 1.7 mg/dL (1.6-2.3); PHOSPHOROUS 3.6 mg/dL (2.5-4.5); POTASSIUM 3.9 mmol/L (3.4-5.0); SODIUM 136 mmol/L (137-145); TOTAL PROTEIN 7.1 gm/dL (6.4-8.2)
[2018-08-03 02:11] LABS: PRE ALBUMIN 27.5 mg/dL (17.6-36.0)
--- NOTE | 2018-08-03 05:30 | NUR ---
Pt slept some during the night, has C/o pain in her right shoulder from the displaced fracture, Pt has been given 2MG morphine Q2H and stated that her pain is much less than before, Pt is fairly steady on her feet buts needs assistance and support when ambulating, VS have remained stable.
--- NOTE | 2018-08-03 10:32 | NUR ---
Initial visit; Patient thanked Meat Manager for looking in on her and offering comfort and prayer.
[2018-08-03 11:42] LABS: COLLECTION METHOD CATHETER
[2018-08-03 11:49] LABS: MUCOUS Present /lpf; PH 6 (5-8); URINE APPEARANCE Clear; URINE BACTERIA None Seen /hpf; URINE BILIRUBIN Negative (NEGATIVE); URINE BLOOD Negative (NEGATIVE); URINE COLOR Straw; URINE GLUCOSE Negative (NEGATIVE); URINE KETONE Negative (NEGATIVE); URINE LEUKOCYTE ESTERASE Negative (NEGATIVE); URINE NITRATE Negative (NEGATIVE); URINE PROTEIN(semi-quant) Negative (NEGATIVE); URINE RBC None Seen /hpf; URINE UROBILINOGEN Negative (NEGATIVE)
--- NOTE | 2018-08-03 14:00 | NUR ---
Patient is going to surgery. She has been up several times to the bathroom today. She keeps having to urinate. She keeps missing the hat when she is going. She gets up every 30-60mins. Miniml complaints of pain, denies nausea. She is pao move her hand. Morphine given throughout the morning for pain. No other changes at this time. Patient could not sign her consent so she susie me and Steffany GOMEZ verbal consent for surgery.
--- NOTE | 2018-08-03 16:15 | NUR ---
Marsha from [facility] confirms they can accept the patient. SW will continue to follow.
--- NOTE | 2018-08-03 17:15 | NUR ---
Patient is back from surgery. She had a block to her right arm and continues to deny pain at this time. Family at bedside. Dressing to right should is clean, dry and intact. Splint to left adjusted to fit her arm better. Patient has voided. No other changes at this time. Call light within reach.
--- NOTE | 2018-08-03 21:44 | NUR ---
Pt awake and alert, states pain is tolorable, shift assessment complete, left Pt call light in reach, bed in lowest position..
[2018-08-04] VITALS: BP 161/65; PULSE 96; TEMP 97.8
--- NOTE | 2018-08-04 01:38 | NUR ---
Pt has some C/O pain at this time, oral medications given for relief.
[2018-08-04 03:48] VITALS: BP 154/51; PULSE 84; TEMP 98.2
--- NOTE | 2018-08-04 05:21 | NUR ---
Pt slept well during the night, some C/O pain late in the shift and [place] pain medication given for relief, Vs have remained stable.
--- NOTE | 2018-08-04 06:50 | NUR ---
Pt doing well this time. She is awake and listening to music. Assisted her with ordering breakfast. Ortho PA in to see patient to change dressing. Drsg looked well with no drainage noted. Ortho stated no need to change at this time. Hoping to go to [facility] today.
[2018-08-04 07:21] LABS: BASO % 0.1 % (0.0-2.0); GRAN # 10.5 (1.4-6.5); GRAN % 85.4 % (42.2-75.2); LYMPH % 8.2 % (20.0-51.0); MEAN CELL VOLUME 92 fl (80.0-100.0); MEAN CORPUSCULAR HGB CONC 32 g/dl (33.0-37.0); MEAN PLATELET VOLUME 8.6 fl (7.4-10.4); MONO # 0.7 (0.1-0.6); MONO % 5.4 % (1.7-9.3); PLATELET COUNT 448 K/mm3 (130-400); RED BLOOD COUNT 3.11 M/mm3 (4.10-5.30); REDCELL DISTRIBUTION WIDTH-CV 14.2 % (11.5-14.5)
[2018-08-04 07:24] LABS: HEMATOCRIT 28.7 % (37.0-47.0); HEMOGLOBIN 9.2 g/dl (12.5-16.0); MEAN CORPUSCULAR HEMOGLOBIN 30 pg (27.0-31.0)
[2018-08-04 07:26] LABS: CALCIUM 9.6 mg/dL (8.4-10.2); CREATININE, serum 0.76 (0.52-1.25); POTASSIUM 4.1 mmol/L (3.4-5.0)
[2018-08-04 07:38] VITALS: BP 133/50; PULSE 80; TEMP 98.4
--- NOTE | 2018-08-04 09:52 | NUR ---
Pt doing well, but did have an increase in pain. Pain medication given. Assisted her to the restroom. She did well with standby assist. No other needs, will continue to monitor.
--- NOTE | 2018-08-04 11:13 | NUR ---
SW faxed updates to [facility].
[2018-08-04 12:07] VITALS: BP 128/43; PULSE 83; TEMP 98
[2018-08-04] MEDS ORDERED: TYLENOL 325MG325 MG PO (12:37)
[2018-08-04 12:54] VITALS: BP 128/43; PULSE 83; TEMP 98
[2018-08-04] MEDS ORDERED: NORCO 325 MG-51 TAB PO (13:13)
--- NOTE | 2018-08-04 13:30 | NUR ---
Pt does well ambulating as a stand by assist. Drsg remains CDI with sling in place. Assisted her with getting dressed. Daughter present during this time. INT removed and [facility] transportation escorted patient out
--- NOTE | 2018-08-04 13:40 | NUR ---
Attempted to call Erik for report x3, no answer.
== END 2018-08-04 13:32 | DRG 492 ==
LOC: SURG 15:00
PROVIDERS: Nurse Practitioner Family; ADMIT Orthopaedic Surgery
PROC: 0PSC04Z Reposition Right Humeral Head with Internal Fixation Device, Open Approach (ICD-10-PCS; principal; 2018-08-03 15:00)
DX: S42.211A Unspecified displaced fracture of surgical neck of right humerus, initial encounter for closed fracture (principal); I21.4 Non-ST elevation (NSTEMI) myocardial infarction; I50.32 Chronic diastolic (congestive) heart failure; W19.XXXA Unspecified fall, initial encounter; Z88.6 Allergy status to analgesic agent; Z88.8 Allergy status to other drugs, medicaments and biological substances; Z86.718 Personal history of other venous thrombosis and embolism; Z86.73 Personal history of transient ischemic attack (TIA), and cerebral infarction without residual deficits; Z85.118 Personal history of other malignant neoplasm of bronchus and lung; E03.9 Hypothyroidism, unspecified; J45.909 Unspecified asthma, uncomplicated; E11.40 Type 2 diabetes mellitus with diabetic neuropathy, unspecified; D64.9 Anemia, unspecified; K27.9 Peptic ulcer, site unspecified, unspecified as acute or chronic, without hemorrhage or perforation; F41.9 Anxiety disorder, unspecified; F32.9 Major depressive disorder, single episode, unspecified; I11.0 Hypertensive heart disease with heart failure
CPT/HCPCS: 99204; A4566; A4619; C1713; C1776; J0360; J0690; J1100; J2270; J2405; J2550; J2704; J2795; J3010; J7030

== ENCOUNTER → 2018-10-09 | Outpatient (CLI) | payer MEDICARE, MEDICAID ==
[~2018-10-09] MED LIST changes: +BROVANA15 MCG/2 M IH; +BUSPAR DIVIDOSE15 MG PO; +EPA FISH OIL1 SGL PO; +LUVOX 50MG50 MG/TAB PO; +PULMICORT0.5 MG/2 M IH; +SEROQUEL 1100 MG/TAB PO; +VITAMIN D31000 I1 PO
== END ==
LOC: BHSO 09:14
DX: F33.42 Major depressive disorder, recurrent, in full remission (principal)
CPT/HCPCS: G0463

== ENCOUNTER → 2018-12-11 | Outpatient (CLI) | payer MEDICARE, MEDICAID | LOC: BHSO 14:57 | DX: F33.42 Major depressive disorder, recurrent, in full remission (principal) | CPT/HCPCS: G0463 ==

== ENCOUNTER → 2019-03-29 | Outpatient (CLI) | payer MEDICARE, MEDICAID | LOC: COL.RAD 14:44 | DX: J98.4 Other disorders of lung (principal) ==

== ENCOUNTER 2019-04-16 08:07 | Day surgery (SDC) | payer MEDICARE, MEDICAID ==
[2019-04-16] VITALS (12 sets, daily range): BP systolic 128–187; BP diastolic 52–93; PULSE 51–70; TEMP 98.1
[~2019-04-16] VITALS: Ht 157.5 cm; Wt 70.1 kg
[2019-04-16] MEDS ORDERED: TYLENOL 325MG325 MG PO (08:37)
[2019-04-16] MEDS ORDERED: DULCOLAX S10 MG/SUPP RC (09:22)
[2019-04-16] MEDS ORDERED: ASPIRIN E.C. 8181 MG PO (09:22)
[2019-04-16] MEDS ORDERED: CLARITIN 1010 MG/TAB PO (09:23)
[2019-04-16] MEDS ORDERED: PLAVIX 75MG TAB75 MG PO (09:24)
[2019-04-16] MEDS ORDERED: COLACE 100100 MG/CAP PO (09:25)
[2019-04-16] MEDS ORDERED: NEURONTIN100 MG/CAP PO (09:26)
[2019-04-16] MEDS ORDERED: IMODIUM 2MG CAPS2 MG PO (09:27)
[2019-04-16] MEDS ORDERED: MUCINEX 60600 MG/TA1 PO (09:27)
[2019-04-16] MEDS ORDERED: INCRUSE EL62.5 MCG/A IH (09:28)
[2019-04-16] MEDS ORDERED: LEXAPRO 5MG5 MG PO (09:30)
[2019-04-16] MEDS ORDERED: ZESTRIL 10MG10 MG PO (09:31)
[2019-04-16] MEDS ORDERED: SINGULAIR 110 MG/TAB PO (09:32)
--- NOTE | 2019-04-16 10:40 | NUR ---
SEE MERGE DOCUMENTATION FOR MEDICATION ADMINISTRATION TIMES AND INTRA/POST PROCEDURE DOCUMENTATION. UNABLE TO OBTAIN LABS PRE PROCEDURE DUE TO POOR PERIPHERAL ACCESS. PLAN TO OBTAIN LABS FROM RECENT PHYSICIAN OFFICE VISIT; LABS BEING FAXED AT THIS TIME AND WILL BE REVIEWED BY PHYSICIAN PRIOR TO CASE START. CURRENT LABS ALSO TO BE DRAWN FROM VENOUS SHEATH ACCESS DURING CASE PER PHYSICIAN.
[2019-04-16 11:08] LABS: MEAN CELL VOLUME 93 fl (80.0-100.0); MEAN CORPUSCULAR HGB CONC 32 g/dl (33.0-37.0); PLATELET COUNT 384 K/mm3 (130-400); RED BLOOD COUNT 2.99 M/mm3 (4.10-5.30); REDCELL DISTRIBUTION WIDTH-CV 13.2 % (11.5-14.5)
[2019-04-16 11:10] LABS: PROTHROMBIN TIME 11.5 SECONDS (9.7-12.8)
[2019-04-16 11:13] LABS: PARTIAL THROMBOPLASTIN TIME 34.5 SECONDS (26.0-37.0)
[2019-04-16 11:17] LABS: HEMATOCRIT 27.7 % (37.0-47.0); HEMOGLOBIN 8.8 g/dl (12.5-16.0); MEAN CORPUSCULAR HEMOGLOBIN 29 pg (27.0-31.0)
[2019-04-16 11:25] LABS: CALCIUM 9.3 mg/dL (8.4-10.2); CREATININE, serum 0.91 (0.52-1.25); POTASSIUM 3.9 mmol/L (3.4-5.0)
[2019-04-16] MEDS ORDERED: PRINIVIL20 MG PO (11:58)
[2019-04-16] MEDS ORDERED: NORVASC 5MG5 MG/TAB PO (11:59)
--- NOTE | 2019-04-16 12:29 | NUR ---
Back from Transplant Coordinator. Alert and oriented. Denies pain and needs at this time. Femstop at 176 pressure. Scant blood to dressing VSS will monitor
--- NOTE | 2019-04-16 16:55 | NUR ---
INT discontinued intact. Femstop removed and no bleeding to dressing. Right groin site soft to palpation. Discharge instructions given and packet given to Erik industrial truck driver to give to nursing staff. Assisted with getting dressed and into wc.
== END 2019-04-16 17:00 ==
LOC: COL.CAR 08:07
PROVIDERS: Internal Medicine Cardiovascular Disease
DX: I25.10 Atherosclerotic heart disease of native coronary artery without angina pectoris (principal); I27.20 Pulmonary hypertension, unspecified; I10 Essential (primary) hypertension; I42.2 Other hypertrophic cardiomyopathy; I25.2 Old myocardial infarction; G90.01 Carotid sinus syncope; M51.34 Other intervertebral disc degeneration, thoracic region; F32.9 Major depressive disorder, single episode, unspecified; Z85.118 Personal history of other malignant neoplasm of bronchus and lung; E03.9 Hypothyroidism, unspecified; M19.90 Unspecified osteoarthritis, unspecified site; I73.00 Raynaud's syndrome without gangrene; I08.3 Combined rheumatic disorders of mitral, aortic and tricuspid valves; Z90.710 Acquired absence of both cervix and uterus; Z90.2 Acquired absence of lung [part of]; Z88.6 Allergy status to analgesic agent; Z88.8 Allergy status to other drugs, medicaments and biological substances; Z79.82 Long term (current) use of aspirin; Z79.02 Long term (current) use of antithrombotics/antiplatelets; Z79.51 Long term (current) use of inhaled steroids; Z87.891 Personal history of nicotine dependence; Z83.3 Family history of diabetes mellitus; Z80.9 Family history of malignant neoplasm, unspecified; Z82.61 Family history of arthritis; Z83.79 Family history of other diseases of the digestive system
CPT/HCPCS: J0153; J1644; J2250; J2405; J3010; Q9967

== ENCOUNTER → 2019-04-24 | Outpatient (CLI) | payer MEDICARE, MEDICAID ==
[~2019-04-24] MED LIST changes: +COLACE 100100 MG/CAP PO; +DULCOLAX S10 MG/SUPP RC; +INCRUSE EL62.5 MCG/A IH; +LEXAPRO 5MG5 MG PO; +NORVASC 5MG5 MG/TAB PO; +PRINIVIL20 MG PO
== END ==
LOC: COL.RAD 12:47
DX: I25.10 Atherosclerotic heart disease of native coronary artery without angina pectoris (principal); I27.20 Pulmonary hypertension, unspecified
CPT/HCPCS: A9540; A9567

== ENCOUNTER → 2019-05-01 | Outpatient (CLI) | payer MEDICARE, MEDICAID | LOC: COL.RAD 13:00 | DX: I25.10 Atherosclerotic heart disease of native coronary artery without angina pectoris (principal) ==

== ENCOUNTER → 2019-07-26 | Outpatient (CLI) | payer MEDICARE, MEDICAID ==
[2019-07-26 16:19] LABS: CALCIUM 9.2 mg/dL (8.4-10.2); CREATININE, serum 1.26 (0.52-1.25); POTASSIUM 4.4 mmol/L (3.4-5.0)
[2019-07-30 07:35] LABS: THYROID STIMULATING HORMONE 1.7 uIU/mL (0.465-4.680)
== END ==
LOC: ZCOL.LAB 15:48
PROVIDERS: Internal Medicine
DX: I21.4 Non-ST elevation (NSTEMI) myocardial infarction (principal); N17.9 Acute kidney failure, unspecified

== ENCOUNTER 2019-08-25 14:17 | Inpatient (IN) | payer MEDICARE, MEDICAID ==
[~2019-08-25] VITALS: Ht 160 cm; Wt 80.9 kg
[~2019-08-25 14:17] MED LIST changes: +PREDNISONE10 MG PO
[2019-08-25 15:37] LABS: BASO % 0.1 % (0.0-2.0); GRAN # 16.3 (1.4-6.5); LYMPH # 1.1 (1.2-3.4); MEAN CELL VOLUME 92 fl (80.0-100.0); MEAN CORPUSCULAR HGB CONC 33 g/dl (33.0-37.0); MEAN PLATELET VOLUME 9.2 fl (7.4-10.4); MONO # 0.6 (0.1-0.6); MONO % 3.1 % (1.7-9.3); PLATELET COUNT 350 K/mm3 (130-400); RED BLOOD COUNT 3.17 M/mm3 (4.10-5.30); REDCELL DISTRIBUTION WIDTH-CV 13.4 % (11.5-14.5)
[2019-08-25 15:43] LABS: ALBUMIN 3.9 gm/dL (3.5-5.0); BILIRUBIN,TOTAL 0.3 mg/dL (0.0-1.0); CALCIUM 8.6 mg/dL (8.4-10.2); CREATININE, serum 1.18 (0.52-1.25); POTASSIUM 4.3 mmol/L (3.4-5.0); TOTAL PROTEIN 7.7 gm/dL (6.4-8.2)
[2019-08-25 15:48] LABS: HEMATOCRIT 29.3 % (37.0-47.0); HEMOGLOBIN 9.6 g/dl (12.5-16.0); MEAN CORPUSCULAR HEMOGLOBIN 30 pg (27.0-31.0)
--- NOTE | 2019-08-25 17:00 | NUR ---
Received patient from ED with fractured left hip. Alert. Hard of hearing. Left hip edematous. Ice pack applied. Orthopedics and hospitalist here to see patient. Daughter here.
[2019-08-25 17:03] LABS: PROTHROMBIN TIME 11.3 SECONDS (9.7-12.8)
[2019-08-25 17:05] VITALS: BP 120/41; PULSE 67; TEMP 98
[2019-08-25] MEDS ORDERED: MYLANTA 150 ML150 M1 (17:36)
[2019-08-25] MEDS ORDERED: GOOD NEIGH1200 MG/15 (17:37)
[2019-08-25] MEDS ORDERED: [UNRECOGNIZED DRUG - OTHER] TOP (17:38)
[2019-08-25] MEDS ORDERED: IMODIUM 2MG CAPS2 MG PO (17:39)
[2019-08-25] MEDS ORDERED: MELATONIN5 M1 SL (17:40)
[2019-08-25] MEDS ORDERED: REFRESH OPTIVE10 M2 OP (17:44)
[2019-08-25] MEDS ORDERED: SALINE 45 ML45 ML NS (17:45)
[2019-08-25] MEDS ORDERED: PREPARATION H HYDR1% TOP (17:46)
[2019-08-25] MEDS ORDERED: B-12 500 MCG PO (17:51)
[2019-08-25] MEDS ORDERED: LIQUIFILM TEARS15 ML OU (17:53)
[2019-08-25] MEDS ORDERED: ALBUTEROL0.83 MG/ML IH (17:57)
[2019-08-25] MEDS ORDERED: B COMPLEX #11 TA1 PO (17:57)
--- NOTE | 2019-08-25 18:40 | NUR ---
Medicated with Morphine for c/o left hip pain. Resting on right side.
[2019-08-25 20:15] VITALS: BP 114/47; PULSE 67; TEMP 98.4
[2019-08-25 23:45] VITALS: BP 97/34; PULSE 59; TEMP 98.1
[2019-08-26 01:13] LABS: BASO % 0.1 % (0.0-2.0); GRAN # 16.8 (1.4-6.5); GRAN % 89.3 % (42.2-75.2); HEMATOCRIT 25.6 % (37.0-47.0); HEMOGLOBIN 8.3 g/dl (12.5-16.0); LYMPH # 1.1 (1.2-3.4); LYMPH % 5.9 % (20.0-51.0); MEAN CELL VOLUME 93 fl (80.0-100.0); MEAN CORPUSCULAR HEMOGLOBIN 30 pg (27.0-31.0); MEAN CORPUSCULAR HGB CONC 32 g/dl (33.0-37.0); MEAN PLATELET VOLUME 9.2 fl (7.4-10.4); MONO # 0.7 (0.1-0.6); MONO % 3.9 % (1.7-9.3); PLATELET COUNT 292 K/mm3 (130-400); RED BLOOD COUNT 2.75 M/mm3 (4.10-5.30); REDCELL DISTRIBUTION WIDTH-CV 13.6 % (11.5-14.5)
[2019-08-26 01:22] LABS: CALCIUM 8.1 mg/dL (8.4-10.2); CREATININE, serum 1.16 (0.52-1.25); POTASSIUM 4.2 mmol/L (3.4-5.0)
--- NOTE | 2019-08-26 01:30 | NUR ---
Indwelling whitaker placed at this time, per order by Renetta Davis.
[2019-08-26 02:42] LABS: COLLECTION METHOD CATHETER
[2019-08-26 02:47] LABS: MUCOUS Present /lpf; PH 5 (5-8); SQUAMOUS EPITHELIAL None Seen /hpf; URINE APPEARANCE Clear; URINE BACTERIA None Seen /hpf; URINE BILIRUBIN Negative (NEGATIVE); URINE BLOOD Negative (NEGATIVE); URINE COLOR Yellow; URINE GLUCOSE Negative (NEGATIVE); URINE KETONE Negative (NEGATIVE); URINE LEUKOCYTE ESTERASE Negative (NEGATIVE); URINE NITRATE Negative (NEGATIVE); URINE PROTEIN(semi-quant) Negative (NEGATIVE); URINE RBC None Seen /hpf; URINE UROBILINOGEN Negative (NEGATIVE)
[2019-08-26 05:16] VITALS: BP 101/46; PULSE 63; TEMP 97.7
[2019-08-26 07:37] VITALS: BP 122/56; PULSE 61; TEMP 97.6
--- NOTE | 2019-08-26 10:10 | NUR ---
PAGED CARDIOLOGY [facility]. CALLED CARDS CONSULT THIS AM AND LEFT MESSAGE. CARDS IS AWARE AND WILL BE BY LATER TO SEE THE PATIENT. SURGERY POST PONED TO TOMORROW PER ORTHO
--- NOTE | 2019-08-26 10:25 | NUR ---
CHANO contacted the patient's son/DPOA-HC, Aldo Doll (ph#[phone]), to discuss discharge plan. The patient was sleeping. The patient resides at [facility] in [facility]. Her PCP is Dr. Rose Schuster. Her advanced directives are in EMR. Her DPOA-HC is her son, Aldo. Aldo lives in [place]. The alternate is her daughter, Jen Blount (ph#[phone]). Jen lives locally. The patient had a left hip fracture. Aldo reports that the plan is for the patient back to [facility] upon discharge. CHANO asked the PA for a COVID test to be ordered. CHANO contacted and faxed updates to Marsha at [facility]. SW to continue to follow.
--- NOTE | 2019-08-26 11:35 | NUR ---
CARDIOLOGY AT BEDSIDE
[2019-08-26 11:52] VITALS: BP 143/50; PULSE 70; TEMP 98.2
--- NOTE | 2019-08-26 12:14 | NUR ---
First visit from the extension edger. Gunstock Repairer prayed with patient and daughter. No other needs right now.
[2019-08-26 16:09] VITALS: BP 123/39; PULSE 70; TEMP 98.4
[2019-08-26 19:35] VITALS: BP 106/48; PULSE 67; TEMP 97.9
--- NOTE | 2019-08-26 20:00 | NUR ---
At time of assessment, patient is resting in bed. She complains of pain 7/10 and requests pain medication. 2mg morphine IV administered. Lungs are clear, heart sounds normal/regular, pulses 2/2. No new concerns at this time. Will continue to monitor.
[2019-08-26 23:40] VITALS: BP 113/62; PULSE 69; TEMP 97.6
[2019-08-27] VITALS (11 sets, daily range): BP systolic 102–149; BP diastolic 31–54; PULSE 54–70; TEMP 97.6–98.1
[2019-08-27 06:10] LABS: BASO % 0.1 % (0.0-2.0); GRAN # 13.9 (1.4-6.5); GRAN % 85.9 % (42.2-75.2); LYMPH # 1.3 (1.2-3.4); LYMPH % 7.7 % (20.0-51.0); MEAN CELL VOLUME 97 fl (80.0-100.0); MEAN CORPUSCULAR HGB CONC 31 g/dl (33.0-37.0); MEAN PLATELET VOLUME 9.2 fl (7.4-10.4); MONO # 0.8 (0.1-0.6); MONO % 5.1 % (1.7-9.3); PLATELET COUNT 321 K/mm3 (130-400); RED BLOOD COUNT 3.02 M/mm3 (4.10-5.30); REDCELL DISTRIBUTION WIDTH-CV 13.3 % (11.5-14.5)
[2019-08-27 06:15] LABS: HEMATOCRIT 29.2 % (37.0-47.0); HEMOGLOBIN 8.9 g/dl (12.5-16.0); MEAN CORPUSCULAR HEMOGLOBIN 29 pg (27.0-31.0)
[2019-08-27 06:21] LABS: CALCIUM 8.4 mg/dL (8.4-10.2); CREATININE, serum 0.84 (0.52-1.25); POTASSIUM 4.2 mmol/L (3.4-5.0)
--- NOTE | 2019-08-27 08:00 | NUR ---
Patient resting in bed eating breakfast at this time. Patient is alert and oriented, answers questions appropriately. Patient asks about possibility of surgery today. Upon review of progress notes, no definate information is available, informed patient that will pass on information as it becomes available.
--- NOTE | 2019-08-27 10:30 | NUR ---
Found patient on surgical schedule for today. Paged ortho PA and anesthesia to report patient ate breakfast this morning. Anesthesia states that patient can still go to surgery today, but time must be pushed back past 1600. Charge nurse informed ortho. Informed patient of surgical plan, called patient's daughter per request to inform her of surgery plan, left message. Patient denies needs at this time, call light within reach.
--- NOTE | 2019-08-27 14:03 | NUR ---
The patient is to have surgery later today. CHANO contacted and faxed updates to Marsha at [facility]. SW to continue to follow.
--- NOTE | 2019-08-27 15:30 | NUR ---
Patient left floor with periop nurse via bed.
--- NOTE | 2019-08-27 17:50 | NUR ---
Patient arrived to floor from PACU via bed. Patient is sleepy but alert and oriented, answers questions appropriately. Fields remains in place. Incisions to left hip are dressed with gauze and tegaderm and are CDI. Patient reports that she is comfortable at the moment and denies further needs, call light within reach.
--- NOTE | 2019-08-27 18:00 | NUR ---
Patient remains off of telemetry, patient remains in surgery at this time per RN.
--- NOTE | 2019-08-27 20:30 | NUR ---
Pt. laying in bed at this time. Pt. is A&OX3 and drowsy. Assessment complete. IV to rt. hand patent, IV fluids infusing per orders. 3 incisions sited to lt. leg CDI. Pt. denies pain or other needs, call light within reach.
[2019-08-28] VITALS: BP 120/41; PULSE 67; TEMP 97.6
[2019-08-28 04:00] VITALS: BP 105/36; PULSE 63; TEMP 97.7
[2019-08-28 07:24] VITALS: BP 131/55; PULSE 60; TEMP 97.4
[2019-08-28 07:27] LABS: MEAN CORPUSCULAR HGB CONC 33 g/dl (33.0-37.0); MEAN PLATELET VOLUME 9.3 fl (7.4-10.4); PLATELET COUNT 301 K/mm3 (130-400); REDCELL DISTRIBUTION WIDTH-CV 13.3 % (11.5-14.5)
[2019-08-28 07:28] LABS: HEMATOCRIT 24.8 % (37.0-47.0); HEMOGLOBIN 8.1 g/dl (12.5-16.0); MEAN CELL VOLUME 92 fl (80.0-100.0); MEAN CORPUSCULAR HEMOGLOBIN 30 pg (27.0-31.0)
[2019-08-28 07:33] LABS: CALCIUM 8.3 mg/dL (8.4-10.2); CREATININE, serum 0.84 (0.52-1.25); POTASSIUM 4.2 mmol/L (3.4-5.0)
[2019-08-28 08:48] LABS: LYMPHOCYTE 13 % (20.0-51.0); NEUTROPHILS 80 % (42.0-75.2); NUCLEATED RED BLOOD CELL 1 (0-6)
[2019-08-28 08:49] LABS: PLATELET ESTIMATE NORMAL (NORMAL)
--- NOTE | 2019-08-28 09:00 | NUR ---
Patient resting in bed at this time. Patient is alert and oriented, answers questions appropriately. Patient reports that pain is well controlled at this time. Dressings to three incisions on left hip/leg are CDI, CMS intact. Patient denies needs at this time, call light within reach.
[2019-08-28 11:05] VITALS: BP 125/44; PULSE 67; TEMP 97.8
--- NOTE | 2019-08-28 14:25 | NUR ---
The patient had surgery yesterday, 08/26, and the patient's COVID results came back negative. SW contacted and faxed the negative results and updates to Marsha at [facility]. SW to continue to follow.
--- NOTE | 2019-08-28 14:28 | NUR ---
Patient reports that pain is well controlled at this time, reminded patient to report pain before it becomes severe, patient verbalized understanding. Patient denies further needs at this time, call light within reach.
[2019-08-28 15:47] VITALS: BP 113/46; PULSE 75; TEMP 98.4
--- NOTE | 2019-08-28 18:31 | NUR ---
Patient resting in bed eating dinner at this time. Patient requested pain medication and rated pain 8/10. Educated patient to request pain medication before pain becomes severe. Patient denies further needs at this time, call light within reach.
[2019-08-28 19:34] VITALS: BP 119/37; PULSE 72; TEMP 98.2
--- NOTE | 2019-08-28 20:53 | NUR ---
MEDICATED WITH HS MEDS INCLUDING TYLENOL 650MG AND OXYCODONE 10MG PO FOR PAIN TO LEFT HIP. IS ALERT AND ORIENTED X4. HAS SL TO RIGHT HAND WITHOUT REDNESS OR SWELLING. HAS 3 INCISIONS TO LEFT HIP, ICE PACK IN PLACE. EATON TO BSD WITH YELLOW URINE. DOES NOT WANT TO BE REPOSITIONED AT THIS TIME.
[2019-08-29] VITALS (7 sets, daily range): BP systolic 110–137; BP diastolic 38–52; PULSE 62–78; TEMP 97.7–98.2
--- NOTE | 2019-08-29 03:15 | NUR ---
Medicated with scheduled [place], denies need for pain meds at this time.
[2019-08-29 06:42] LABS: CALCIUM 8.5 mg/dL (8.4-10.2); CREATININE, serum 0.95 (0.52-1.25); POTASSIUM 4.3 mmol/L (3.4-5.0)
[2019-08-29 07:09] LABS: MEAN CELL VOLUME 94 fl (80.0-100.0); MEAN CORPUSCULAR HGB CONC 32 g/dl (33.0-37.0); MEAN PLATELET VOLUME 9.5 fl (7.4-10.4); PLATELET COUNT 278 K/mm3 (130-400); RED BLOOD COUNT 2.39 M/mm3 (4.10-5.30); REDCELL DISTRIBUTION WIDTH-CV 13.5 % (11.5-14.5)
[2019-08-29 07:16] LABS: HEMATOCRIT 22.4 % (37.0-47.0); HEMOGLOBIN 7.1 g/dl (12.5-16.0); MEAN CORPUSCULAR HEMOGLOBIN 30 pg (27.0-31.0)
[2019-08-29 08:46] LABS: BAND 1 % (0-10); LYMPHOCYTE 19 % (20.0-51.0); METAMYELOCYTE 3 % (0-0); NEUTROPHILS 74 % (42.0-75.2); PLATELET ESTIMATE NORMAL (NORMAL)
[2019-08-29 08:47] LABS: ANISOCYTOSIS 1+; POLYCHROMASIA 1+
--- NOTE | 2019-08-29 09:00 | NUR ---
Patient resting in bed eating breakfast at this time. Patient is alert and oriented, answers questions appropriately. Patient reports that pain is controlled, but does request PRN pain medication with AM meds prior to physical therapy, administered per order. Patient c/o pain in her left hand, second knuckle at base of finger is visibly swollen and there is a bruise on her palm between the second and third finger. Patient states that she had not noticed it before, but wonders if it happened during her fall and she hadn't felt it until today. Reported pain and swelling to hospitalist. Patient denies further needs at this time, call light within reach.
--- NOTE | 2019-08-29 12:06 | NUR ---
The patient is to tentatively be able to discharge tomorrow, 08/29, back to [facility]. CHANO met with the patient to review discharge plan and presented and read the IM form outloud to the patient. The patient is agreeable to discharge tomorrow and gave SW approval to sign the form on her behalf. SW provided her with a copy. CHANO contacted and updated the patient's daughter, Jen, of the tentative discharge. Jen verbalized understanding and was agreeable to discharge, as long as patient is. CHANO notified and faxed updates to Marsha at [facility]. SW to continue to follow.
[2019-08-29] MEDS ORDERED: OSCAL 500 TAB500 MG PO (14:15)
[2019-08-29] MEDS ORDERED: VITAMIN C500 MG PO (14:16)
[2019-08-29] MEDS ORDERED: NORCO 325 MG-51 TAB PO (14:17)
[2019-08-29] MEDS ORDERED: FERROUS SU325 MG/TAB PO (14:25)
[2019-08-29] MEDS ORDERED: ASPI325T6 PO (14:35)
[2019-08-29 17:23] LABS: HEMATOCRIT 22.4 % (37.0-47.0); HEMOGLOBIN 7.2 g/dl (12.5-16.0)
--- NOTE | 2019-08-29 18:06 | NUR ---
Patient currently in bed eating supper. Patient was up to chair with therapy today, 2x assist to get her to and from chair with gaitbelt and walker. Patient reported moderate pain with movement. Patient continues to c/o pain in her left hand, wrapped with acewrap for patient comfort. Patient denies needs at this time, call light within reach.
--- NOTE | 2019-08-29 21:20 | NUR ---
PT IN BED. IS ALERT AND ORIENTED X3. ASKING FOR BEDTIME MEDS. HAS SL TO RIGHT HAND WITHOUT REDNESS OR SWELLING. EATON CATHETER TO BSD WITH YELLOW URINE, CATH CARE PROVIDED. MEDICATED WITH HS MEDS INCLUDING OXYCODONE 10MG PO FOR PAIN TO LEFT HIP. 3 DRSG'S TO LEFT HIP INTACT.
[2019-08-30 00:02] VITALS: BP 135/63; PULSE 75; TEMP 98.1
[2019-08-30 03:57] VITALS: BP 156/53; PULSE 80; TEMP 97.7
--- NOTE | 2019-08-30 04:30 | NUR ---
ASSISTED PT WITH 2 ASSIST TO BSC FOR BM. PT TRANSFERS SLOW AND FAIR WITH MUCH DISCOMFORT. UNABLE TO HAVE BM. BACK TO BED.
--- NOTE | 2019-08-30 04:44 | NUR ---
MEDICATED WITH OXYCODONE 10MG PO FOR LEFT HIP PAIN.
--- NOTE | 2019-08-30 08:00 | NUR ---
Patient in bed resting. Alert and oriented x 3. Assessment complete. Fields to dependent drainage with clear yellow urine in bag. x2 sites to lateral thigh is CDI. Denies pain at this time. Denies further needs at this time.
[2019-08-30 08:07] VITALS: BP 119/37; PULSE 72; TEMP 98
[2019-08-30 08:54] LABS: MEAN CELL VOLUME 94 fl (80.0-100.0); MEAN CORPUSCULAR HGB CONC 32 g/dl (33.0-37.0); MEAN PLATELET VOLUME 9.4 fl (7.4-10.4); PLATELET COUNT 310 K/mm3 (130-400); RED BLOOD COUNT 2.58 M/mm3 (4.10-5.30); REDCELL DISTRIBUTION WIDTH-CV 13.7 % (11.5-14.5)
[2019-08-30 09:03] LABS: CALCIUM 8.9 mg/dL (8.4-10.2); CREATININE, serum 0.84 (0.52-1.25); POTASSIUM 4.4 mmol/L (3.4-5.0)
[2019-08-30 09:19] LABS: HEMATOCRIT 24.3 % (37.0-47.0); HEMOGLOBIN 7.8 g/dl (12.5-16.0); MEAN CORPUSCULAR HEMOGLOBIN 30 pg (27.0-31.0)
--- NOTE | 2019-08-30 10:00 | NUR ---
Fields catheter discontinued per orders, Pericare provided, patient tolerated well.
[2019-08-30 10:41] LABS: BAND 1 % (0-10); EOSINOPHIL 1 % (0-4); LYMPHOCYTE 16 % (20.0-51.0); METAMYELOCYTE 1 % (0-0); NEUTROPHILS 71 % (42.0-75.2)
[2019-08-30 10:42] LABS: PLATELET ESTIMATE NORMAL (NORMAL)
--- NOTE | 2019-08-30 11:58 | NUR ---
The patient is to discharge today, 08/29, to [facility] for a skilled stay. Transportation was scheduled at 1300, via [facility]. CHANO informed the patient, her RN, and the patient's daughter (Jen) via phone. They were all agreeable to the time. No additional needs at this time.
--- NOTE | 2019-08-30 12:30 | NUR ---
Daughter at bedside
[2019-08-30 13:09] VITALS: BP 119/37; PULSE 72; TEMP 98
--- NOTE | 2019-08-30 13:40 | NUR ---
Patient transfering to [facility]. Assisted patient to comode x 2 assist with walker. Assisted patient to dress. Denies further needs at this. Attempted to call report to mirian. Daughter at bedside.
== END 2019-08-30 13:40 | DRG 481 ==
LOC: COL.ER 14:17 → SURG 15:12
PROVIDERS: Emergency Medicine; Hospitalist; Nurse Practitioner Family; Physician Assistant; ADMIT Internal Medicine
PROC: 0QH736Z Insertion of Intramedullary Internal Fixation Device into Left Upper Femur, Percutaneous Approach (ICD-10-PCS; principal; 2019-08-26)
DX: S72.142A Displaced intertrochanteric fracture of left femur, initial encounter for closed fracture (principal); I50.32 Chronic diastolic (congestive) heart failure; J44.9 Chronic obstructive pulmonary disease, unspecified; F32.9 Major depressive disorder, single episode, unspecified; F41.9 Anxiety disorder, unspecified; I11.0 Hypertensive heart disease with heart failure; E03.9 Hypothyroidism, unspecified; K59.00 Constipation, unspecified; D50.0 Iron deficiency anemia secondary to blood loss (chronic); K27.9 Peptic ulcer, site unspecified, unspecified as acute or chronic, without hemorrhage or perforation; E11.40 Type 2 diabetes mellitus with diabetic neuropathy, unspecified; I25.10 Atherosclerotic heart disease of native coronary artery without angina pectoris; G47.00 Insomnia, unspecified; E11.65 Type 2 diabetes mellitus with hyperglycemia; T38.0X5A Adverse effect of glucocorticoids and synthetic analogues, initial encounter; Z96.651 Presence of right artificial knee joint; W05.0XXA Fall from non-moving wheelchair, initial encounter; M19.90 Unspecified osteoarthritis, unspecified site; Z85.118 Personal history of other malignant neoplasm of bronchus and lung; Z86.73 Personal history of transient ischemic attack (TIA), and cerebral infarction without residual deficits; Z90.710 Acquired absence of both cervix and uterus; Z87.01 Personal history of pneumonia (recurrent); Z86.718 Personal history of other venous thrombosis and embolism; Z79.82 Long term (current) use of aspirin; Z87.891 Personal history of nicotine dependence; I25.2 Old myocardial infarction
CPT/HCPCS: 99222-AI; 99231-AI; 99232-AI; 99239; A9284; C1713; C1769; J0690; J1100; J1170; J1815; J1885; J2250; J2270; J2405; J2704; J2795; J3010; J7030; J7512

== ENCOUNTER → 2019-09-12 | Outpatient (CLI) | payer MEDICARE, MEDICAID ==
[~2019-09-12] MED LIST changes: +ASPI325T6 PO; +B COMPLEX #11 TA1 PO; +B-12 500 MCG PO; +GOOD NEIGH1200 MG/15; +LIQUIFILM TEARS15 ML OU; +MELATONIN5 M1 SL; +MYLANTA 150 ML150 M1; +OSCAL 500 TAB500 MG PO; +PREPARATION H HYDR1% TOP; +REFRESH OPTIVE10 M2 OP; +SALINE 45 ML45 ML NS; +VITAMIN C500 MG PO; +[UNRECOGNIZED DRUG - OTHER] TOP
[2019-09-12 17:43] LABS: BASO % 0.5 % (0.0-2.0); EOS # 0.2 (0.0-0.7); EOS % 1.8 % (0-4.0); GRAN # 6.1 (1.4-6.5); LYMPH # 1.6 (1.2-3.4); LYMPH % 18.4 % (20.0-51.0); MEAN CELL VOLUME 98 fl (80.0-100.0); MEAN CORPUSCULAR HGB CONC 31 g/dl (33.0-37.0); MEAN PLATELET VOLUME 8.8 fl (7.4-10.4); MONO # 0.6 (0.1-0.6); MONO % 6.8 % (1.7-9.3); PLATELET COUNT 310 K/mm3 (130-400); REDCELL DISTRIBUTION WIDTH-CV 17.2 % (11.5-14.5)
[2019-09-12 18:28] LABS: HEMATOCRIT 27.5 % (37.0-47.0); HEMOGLOBIN 8.5 g/dl (12.5-16.0); MEAN CORPUSCULAR HEMOGLOBIN 30 pg (27.0-31.0)
== END ==
LOC: ZCOL.LAB 16:38
PROVIDERS: Internal Medicine
DX: D64.9 Anemia, unspecified (principal)

== ENCOUNTER → 2020-05-07 | Outpatient (CLI) | payer MEDICARE, MEDICAID | LOC: COL.RAD 10:02 | DX: S46.212A Strain of muscle, fascia and tendon of other parts of biceps, left arm, initial encounter (principal) ==

== ENCOUNTER → 2020-12-10 | Outpatient (CLI) | payer MEDICARE, MEDICAID | LOC: COL.RAD 07:14 | DX: M67.88 Other specified disorders of synovium and tendon, other site (principal) ==

== ENCOUNTER → 2020-12-30 | Outpatient (CLI) | payer MEDICARE, MEDICAID | LOC: COL.VAS 13:59 | DX: R06.02 Shortness of breath (principal) ==

== ENCOUNTER → 2021-02-18 | Outpatient (CLI) | payer MEDICARE, MEDICAID ==
[2021-02-18 14:50] LABS: C-REACTIVE PROTEIN 4.76 mg/dL (0.00-0.50)
== END ==
LOC: ZCOL.LAB 14:24
PROVIDERS: Internal Medicine
DX: R47.1 Dysarthria and anarthria (principal); N28.9 Disorder of kidney and ureter, unspecified; N17.9 Acute kidney failure, unspecified

== ENCOUNTER → 2021-02-19 | Outpatient (CLI) | payer MEDICARE, MEDICAID | LOC: COL.VAS 07:22 | DX: M79.89 Other specified soft tissue disorders (principal); R79.89 Other specified abnormal findings of blood chemistry ==

== ENCOUNTER → 2021-02-26 | Outpatient (CLI) | payer MEDICARE, MEDICAID | LOC: COL.RAD 02-24 08:30 | DX: Z01.812 Encounter for preprocedural laboratory examination (principal); I51.7 Cardiomegaly; J18.1 Lobar pneumonia, unspecified organism | CPT/HCPCS: Q9967 ==

== ENCOUNTER → 2021-03-02 | Outpatient (CLI) | payer MEDICARE, MEDICAID | LOC: ZCOL.LAB 11:50 | DX: I10 Essential (primary) hypertension (principal) ==

== ENCOUNTER → 2021-04-16 | Outpatient (CLI) | payer MEDICARE, MEDICAID | LOC: COL.RAD 09:08 | DX: M67.88 Other specified disorders of synovium and tendon, other site (principal) ==

== ENCOUNTER 2021-10-25 13:15 | Emergency (ER) | payer MEDICARE, MEDICAID ==
[~2021-10-25] VITALS: Ht 157.5 cm; Wt 86.8 kg
[2021-10-25 13:26] VITALS: TEMP 96.5
[2021-10-25 14:01] LABS: BASO # 0.1 K/mm3 (0.0-0.2); BASO % 0.5 % (0.0-2.0); EOS # 0.3 K/mm3 (0.0-0.7); EOS % 2.8 % (0.0-4.0); GRAN # 8.4 K/mm3 (1.4-6.5); GRAN % 74.5 % (42.2-75.2); HEMOGLOBIN 10.9 g/dl (12.5-16.0); LYMPH # 1.8 K/mm3 (1.2-3.4); LYMPH % 16.1 % (20.0-51.0); MEAN CELL VOLUME 94 fl (80.0-100.0); MEAN CORPUSCULAR HEMOGLOBIN 31 pg (27-31); MEAN CORPUSCULAR HGB CONC 33 g/dl (33.0-37.0); MEAN PLATELET VOLUME 8.9 fl (7.4-10.4); MONO # 0.6 K/mm3 (0.1-0.6); MONO % 5.7 % (1.7-9.3); PLATELET COUNT 333 K/mm3 (130-400); RED BLOOD COUNT 3.55 M/mm3 (4.10-5.30); REDCELL DISTRIBUTION WIDTH-CV 13.8 % (11.5-14.5)
[2021-10-25 14:12] LABS: HEMATOCRIT 33.3 % (37.0-47.0)
[2021-10-25 14:22] LABS: CALCIUM 9.5 mg/dL (8.4-10.2); CREATININE, serum 1.41 mg/dL (0.57-1.11); POTASSIUM 3.9 mmol/L (3.5-4.5)
[2021-10-25 14:31] LABS: ERYTHROCYTE SEDIMENTATION RATE 100 mm/hr (0-30)
[2021-10-25 16:25] VITALS: BP 169/72; PULSE 57
== END 2021-10-25 16:25 | disposition home or self-care (01) ==
LOC: COL.ER 13:15
PROVIDERS: Emergency Medicine
DX: H49.21 Sixth [abducent] nerve palsy, right eye (principal); E11.51 Type 2 diabetes mellitus with diabetic peripheral angiopathy without gangrene
CPT/HCPCS: J7040; Q9967

== ENCOUNTER 2021-11-29 14:08 | Inpatient (IN) | payer MEDICARE, MEDICAID ==
[~2021-11-29] VITALS: Ht 157.5 cm; Wt 84.8 kg
[~2021-11-29 14:08] MED LIST changes: +MASON NATURAL2000 IU PO; -VITAMIN D31000 I1 PO
[2021-11-29 14:55] LABS: BASO # 0.1 K/mm3 (0.0-0.2); BASO % 0.3 % (0.0-2.0); EOS # 0.1 K/mm3 (0.0-0.7); EOS % 0.7 % (0.0-4.0); GRAN # 12.4 K/mm3 (1.4-6.5); GRAN % 82.6 % (42.2-75.2); LYMPH # 1.6 K/mm3 (1.2-3.4); LYMPH % 10.5 % (20.0-51.0); MEAN CELL VOLUME 91 fl (80.0-100.0); MEAN CORPUSCULAR HGB CONC 34 g/dl (33.0-37.0); MEAN PLATELET VOLUME 9.1 fl (7.4-10.4); MONO # 0.8 K/mm3 (0.1-0.6); MONO % 5.2 % (1.7-9.3); PLATELET COUNT 466 K/mm3 (130-400); REDCELL DISTRIBUTION WIDTH-CV 14.5 % (11.5-14.5)
[2021-11-29 14:57] LABS: HEMATOCRIT 28.3 % (37.0-47.0); HEMOGLOBIN 9.5 g/dl (12.5-16.0); MEAN CORPUSCULAR HEMOGLOBIN 31 pg (27-31)
[2021-11-29 15:11] LABS: ALBUMIN 2.9 gm/dL (3.4-4.8); BILIRUBIN,TOTAL 0.5 mg/dL (0.2-1.2); CALCIUM 9.3 mg/dL (8.4-10.2); CREATININE, serum 1.2 mg/dL (0.57-1.11); TOTAL PROTEIN 7.9 gm/dL (6.2-8.1)
[2021-11-29 15:16] LABS: POTASSIUM 2.9 mmol/L (3.5-4.5)
[2021-11-29 15:40] LABS: TROPONIN-I 0.044 ng/mL (0.00-0.033)
[2021-11-29 15:48] LABS: COLLECTION METHOD CATHETER
[2021-11-29 15:52] LABS: URINE APPEARANCE Clear (CLEAR/HAZY); URINE COLOR Yellow (YELLOW)
[2021-11-29 15:53] LABS: PH 5.5 (5.0-8.5); URINE PROTEIN(semi-quant) 2+ (NEGATIVE)
[2021-11-29 15:54] LABS: URINE BLOOD 2+ (NEGATIVE); URINE GLUCOSE Negative (NEGATIVE); URINE KETONE TRACE (NEGATIVE); URINE NITRATE Negative (NEGATIVE); URINE UROBILINOGEN 0.2 E.U/dL (0.2-1.0)
[2021-11-29 15:56] LABS: MUCOUS Present (NOT PRESENT); SQUAMOUS EPITHELIAL 0-2 /hpf (0-10); URINE BACTERIA Rare /hpf (NONE SEEN)
[2021-11-29 18:01] VITALS: BP 135/54; PULSE 65; TEMP 98
[2021-11-29 20:40] VITALS: BP 148/45; PULSE 60; TEMP 98.2
[2021-11-29 23:40] VITALS: BP 163/67; PULSE 67
[2021-11-30 04:19] VITALS: BP 171/72; PULSE 65; TEMP 98.3
[2021-11-30] MEDS ORDERED: AYR SALINE GEL1 NS (05:00)
[2021-11-30] MEDS ORDERED: REFRESH 1 ML1 ML OP (05:03)
[2021-11-30] MEDS ORDERED: SEROQUEL50 MG PO (05:28)
[2021-11-30] MEDS ORDERED: CEPACOL SORE TH1 LO8 MM (05:37)
[2021-11-30] MEDS ORDERED: CETAPHIL COMPO480 ML TOP (05:38)
[2021-11-30] MEDS ORDERED: TOPROL XL 25MG25 MG PO (05:40)
[2021-11-30] MEDS ORDERED: PEPCID 20MG TAB20 MG PO (05:41)
[2021-11-30] MEDS ORDERED: [UNRECOGNIZED DRUG - OTHER] PO (05:43)
[2021-11-30] MEDS ORDERED: MIRALAX PA17 GM/Dose PO (05:44)
[2021-11-30] MEDS ORDERED: ATROVENT NASAL15 ML NS (05:47)
[2021-11-30] MEDS ORDERED: NYSTATIN OR100 MU/ML PO (05:48)
[2021-11-30] MEDS ORDERED: KRILL OIL 1,001 EAC1 PO (05:49)
[2021-11-30] MEDS ORDERED: PREPH RC (05:50)
[2021-11-30] MEDS ORDERED: IBU800 M1 PO (05:53)
[2021-11-30] MEDS ORDERED: PROLIA60 MG/ML SQ (05:58)
[2021-11-30] MEDS ORDERED: RT SPIRIVA18 MCG IH (05:58)
[2021-11-30] MEDS ORDERED: TYLENOL 325MG325 MG PO (06:05)
[2021-11-30] MEDS ORDERED: VOLTAREN GEL 1%1 TU TP (06:06)
[2021-11-30 06:35] LABS: BASO % 0.2 % (0.0-2.0); GRAN # 10.8 K/mm3 (1.4-6.5); LYMPH # 0.9 K/mm3 (1.2-3.4); LYMPH % 7.4 % (20.0-51.0); MEAN CELL VOLUME 92 fl (80.0-100.0); MEAN CORPUSCULAR HGB CONC 33 g/dl (33.0-37.0); MEAN PLATELET VOLUME 9.5 fl (7.4-10.4); MONO # 0.2 K/mm3 (0.1-0.6); MONO % 1.3 % (1.7-9.3); PLATELET COUNT 436 K/mm3 (130-400); RED BLOOD COUNT 2.96 M/mm3 (4.10-5.30); REDCELL DISTRIBUTION WIDTH-CV 14.2 % (11.5-14.5)
[2021-11-30 06:40] LABS: HEMATOCRIT 27.3 % (37.0-47.0); HEMOGLOBIN 9.1 g/dl (12.5-16.0); MEAN CORPUSCULAR HEMOGLOBIN 31 pg (27-31)
[2021-11-30 06:45] LABS: CALCIUM 9.1 mg/dL (8.4-10.2); CREATININE, serum 1.24 mg/dL (0.57-1.11); POTASSIUM 3.4 mmol/L (3.5-4.5)
[2021-11-30 07:14] VITALS: BP 180/69; PULSE 77; TEMP 98.1
[2021-11-30 12:00] VITALS: BP 153/66; PULSE 66; TEMP 98
[2021-11-30 15:31] VITALS: BP 147/62; PULSE 65; TEMP 98.2
[2021-11-30 20:00] VITALS: BP 156/62; PULSE 67; TEMP 98
[2021-11-30 23:32] VITALS: BP 158/65; PULSE 65; TEMP 98
[2021-12-01 03:25] VITALS: BP 160/66; PULSE 69; TEMP 797.8
[2021-12-01 06:25] LABS: CALCIUM 8.7 mg/dL (8.4-10.2); CREATININE, serum 1.35 mg/dL (0.57-1.11); MEAN CELL VOLUME 89 fl (80.0-100.0); MEAN CORPUSCULAR HGB CONC 34 g/dl (33.0-37.0); MEAN PLATELET VOLUME 9.3 fl (7.4-10.4); PLATELET COUNT 458 K/mm3 (130-400); POTASSIUM 3.9 mmol/L (3.5-4.5); RED BLOOD COUNT 3.03 M/mm3 (4.10-5.30); REDCELL DISTRIBUTION WIDTH-CV 14.1 % (11.5-14.5)
[2021-12-01 06:30] LABS: HEMATOCRIT 27.1 % (37.0-47.0); HEMOGLOBIN 9.1 g/dl (12.5-16.0); MEAN CORPUSCULAR HEMOGLOBIN 30 pg (27-31)
[2021-12-01 07:04] LABS: LYMPHOCYTE 7 % (20.0-51.0); NEUTROPHILS 91 % (42.0-75.2); NUCLEATED RED BLOOD CELL 1 (0-6); PLATELET ESTIMATE INCREASED (NORMAL)
[2021-12-01 08:00] VITALS: BP 162/67; PULSE 66; TEMP 97.9
[2021-12-01 11:34] VITALS: BP 154/69; PULSE 75; TEMP 97.9
[2021-12-01 16:00] VITALS: BP 178/70; PULSE 83; TEMP 97.7
[2021-12-01 22:04] VITALS: BP 153/74; PULSE 69; TEMP 98
[2021-12-01 23:43] VITALS: BP 168/85; PULSE 88; TEMP 97.7
[2021-12-02 05:56] LABS: MEAN CORPUSCULAR HGB CONC 32 g/dl (33.0-37.0); MEAN PLATELET VOLUME 9.3 fl (7.4-10.4); PLATELET COUNT 494 K/mm3 (130-400); RED BLOOD COUNT 3.09 M/mm3 (4.10-5.30); REDCELL DISTRIBUTION WIDTH-CV 14.3 % (11.5-14.5)
[2021-12-02 06:03] LABS: HEMATOCRIT 28.9 % (37.0-47.0); HEMOGLOBIN 9.3 g/dl (12.5-16.0); MEAN CELL VOLUME 94 fl (80.0-100.0); MEAN CORPUSCULAR HEMOGLOBIN 30 pg (27-31)
[2021-12-02 06:23] LABS: CALCIUM 9.1 mg/dL (8.4-10.2); CREATININE, serum 1.45 mg/dL (0.57-1.11); POTASSIUM 4.1 mmol/L (3.5-4.5)
[2021-12-02 06:37] LABS: BAND 7 % (0-10); LYMPHOCYTE 10 % (20.0-51.0); NEUTROPHILS 80 % (42.0-75.2)
[2021-12-02 06:40] LABS: PLATELET ESTIMATE INCREASED (NORMAL)
[2021-12-02 07:30] VITALS: BP 156/87; PULSE 89; TEMP 97.7
[2021-12-02 11:08] VITALS: BP 183/93; PULSE 85; TEMP 97.9
[2021-12-02 12:09] LABS: ARTERIAL BLOOD GAS BASE EXCESS -3.1 (-2-2); ARTERIAL BLOOD GAS HCO3 20.6 meq/L (22-26); ARTERIAL BLOOD GAS PCO2 32.6 mmHg (35-45); ARTERIAL BLOOD GAS PO2 68.6 mmHg (80-100); ARTERIAL BLOOD GAS pH 7.42 (7.35-7.45)
[2021-12-02 12:10] LABS: ARTERIAL BLD GAS O2 SATURATION 92.6 % (92-100); ARTERIAL BLD GAS TCO2 CT 21.6
[2021-12-02 13:17] VITALS: BP 158/103; PULSE 88
[2021-12-02 13:58] LABS: ALBUMIN 3.1 gm/dL (3.4-4.8); BILIRUBIN,TOTAL 0.3 mg/dL (0.2-1.2); CALCIUM 8.7 mg/dL (8.4-10.2); CREATININE, serum 1.42 mg/dL (0.57-1.11); POTASSIUM 3.9 mmol/L (3.5-4.5); TOTAL PROTEIN 7.7 gm/dL (6.2-8.1)
[2021-12-02 16:00] VITALS: BP 166/76; PULSE 73; TEMP 98.7
[2021-12-02 20:33] VITALS: BP 164/86; PULSE 71; TEMP 97.6
[2021-12-02 23:38] VITALS: BP 154/85; PULSE 82; TEMP 98.1
[2021-12-03] VITALS (8 sets, daily range): BP systolic 153–178; BP diastolic 62–96; PULSE 65–111; TEMP 97.4–98.9
[2021-12-03 06:28] LABS: MEAN CELL VOLUME 92 fl (80.0-100.0); MEAN CORPUSCULAR HGB CONC 33 g/dl (33.0-37.0); MEAN PLATELET VOLUME 9.4 fl (7.4-10.4); PLATELET COUNT 418 K/mm3 (130-400); RED BLOOD COUNT 2.67 M/mm3 (4.10-5.30); REDCELL DISTRIBUTION WIDTH-CV 14.3 % (11.5-14.5)
[2021-12-03 06:30] LABS: HEMATOCRIT 24.5 % (37.0-47.0); MEAN CORPUSCULAR HEMOGLOBIN 30 pg (27-31)
[2021-12-03 06:40] LABS: CALCIUM 8.1 mg/dL (8.4-10.2); CREATININE, serum 1.21 mg/dL (0.57-1.11); POTASSIUM 3.8 mmol/L (3.5-4.5)
[2021-12-03 07:07] LABS: BAND 3 % (0-10); LYMPHOCYTE 7 % (20.0-51.0); NEUTROPHILS 87 % (42.0-75.2); PLATELET ESTIMATE INCREASED (NORMAL)
[2021-12-03 07:08] LABS: HYPOCHROMIA 1+
[2021-12-03 11:32] LABS: MAGNESIUM 2.1 mg/dL (1.6-2.6); PHOSPHOROUS 2.8 mg/dL (2.3-4.7)
[2021-12-04] VITALS (466 sets, daily range): BP systolic 130–184; BP diastolic 67–86; PULSE 48–81; TEMP 97.7–98; O2SAT 84–100
[2021-12-04 07:59] LABS: CALCIUM 8.5 mg/dL (8.4-10.2); CREATININE, serum 1.25 mg/dL (0.57-1.11); MAGNESIUM 2.2 mg/dL (1.6-2.6); PHOSPHOROUS 2.1 mg/dL (2.3-4.7); POTASSIUM 3.7 mmol/L (3.5-4.5)
[2021-12-04 08:32] LABS: MEAN CELL VOLUME 92 fl (80.0-100.0); MEAN CORPUSCULAR HGB CONC 32 g/dl (33.0-37.0); MEAN PLATELET VOLUME 9.7 fl (7.4-10.4); PLATELET COUNT 390 K/mm3 (130-400); RED BLOOD COUNT 2.64 M/mm3 (4.10-5.30); REDCELL DISTRIBUTION WIDTH-CV 14.3 % (11.5-14.5)
[2021-12-04 08:34] LABS: HEMATOCRIT 24.4 % (37.0-47.0); HEMOGLOBIN 7.8 g/dl (12.5-16.0); MEAN CORPUSCULAR HEMOGLOBIN 30 pg (27-31)
== END 2021-12-04 19:00 | disposition short-term general hospital (02) | DRG 189 ==
LOC: COL.ER 14:08 → MEDICAL 16:17 → COL.ER 16:17 → MEDICAL 21:00 → ICU 12-04 11:36 → MEDICAL 12-04 15:18 → ICU 12-04 15:18
PROVIDERS: Emergency Medicine; Physician Assistant; ADMIT Student in an Organized Health Care Education/Training Program
PROC: 02HV33Z Insertion of Infusion Device into Superior Vena Cava, Percutaneous Approach (ICD-10-PCS; principal; 2021-12-02)
DX: J96.01 Acute respiratory failure with hypoxia (principal); I21.A1 Myocardial infarction type 2; I50.32 Chronic diastolic (congestive) heart failure; J45.901 Unspecified asthma with (acute) exacerbation; N39.0 Urinary tract infection, site not specified; N17.9 Acute kidney failure, unspecified; J91.8 Pleural effusion in other conditions classified elsewhere; F41.9 Anxiety disorder, unspecified; E03.9 Hypothyroidism, unspecified; J44.9 Chronic obstructive pulmonary disease, unspecified; I25.10 Atherosclerotic heart disease of native coronary artery without angina pectoris; I11.0 Hypertensive heart disease with heart failure; L89.311 Pressure ulcer of right buttock, stage 1; I27.20 Pulmonary hypertension, unspecified; E87.6 Hypokalemia; T38.0X5A Adverse effect of glucocorticoids and synthetic analogues, initial encounter; G89.29 Other chronic pain; D72.829 Elevated white blood cell count, unspecified; E11.40 Type 2 diabetes mellitus with diabetic neuropathy, unspecified; G47.00 Insomnia, unspecified; Z96.651 Presence of right artificial knee joint; M79.601 Pain in right arm; F03.90 Unspecified dementia, unspecified severity, without behavioral disturbance, psychotic disturbance, mood disturbance, and anxiety; M54.50 Low back pain, unspecified; I08.1 Rheumatic disorders of both mitral and tricuspid valves; F41.1 Generalized anxiety disorder; F41.0 Panic disorder [episodic paroxysmal anxiety]; R21 Rash and other nonspecific skin eruption; F32.9 Major depressive disorder, single episode, unspecified; Z20.822 Contact with and (suspected) exposure to COVID-19; E11.65 Type 2 diabetes mellitus with hyperglycemia; Z79.01 Long term (current) use of anticoagulants; Z86.73 Personal history of transient ischemic attack (TIA), and cerebral infarction without residual deficits; Z90.710 Acquired absence of both cervix and uterus; Z88.8 Allergy status to other drugs, medicaments and biological substances; Z79.82 Long term (current) use of aspirin; Z79.890 Hormone replacement therapy; Z79.4 Long term (current) use of insulin; Y92.89 Other specified places as the place of occurrence of the external cause; Z87.19 Personal history of other diseases of the digestive system; Z85.118 Personal history of other malignant neoplasm of bronchus and lung; Z88.5 Allergy status to narcotic agent
CPT/HCPCS: C1751; J0360; J0696; J1630; J1650; J1815; J1940; J2060; J2270; J2704; J2920; J2930; J3370; J3411; J3480; J7030; J7040; J7050

== ENCOUNTER 2021-12-14 23:08 | Emergency (ER) | payer MEDICARE, MEDICAID ==
[~2021-12-14] VITALS: Ht 157.5 cm; Wt 83.2 kg
[~2021-12-14 23:08] MED LIST changes: +ATROVENT NASAL15 ML NS; +AYR SALINE GEL1 NS; +CEPACOL SORE TH1 LO8 MM; +CETAPHIL COMPO480 ML TOP; +KRILL OIL 1,001 EAC1 PO; +MIRALAX PA17 GM/Dose PO; +NYSTATIN OR100 MU/ML PO; +PEPCID 20MG TAB20 MG PO; +PREPH RC; +PROLIA60 MG/ML SQ; +REFRESH 1 ML1 ML OP; +RT SPIRIVA18 MCG IH; +SEROQUEL50 MG PO; +TOPROL XL 25MG25 MG PO; +VOLTAREN GEL 1%1 TU TP; +[UNRECOGNIZED DRUG - OTHER] PO
[2021-12-14 23:12] VITALS: TEMP 99.3
[2021-12-14 23:47] LABS: BASO % 0.3 % (0.0-2.0); EOS # 0.2 K/mm3 (0.0-0.7); EOS % 1.8 % (0.0-4.0); GRAN # 7.3 K/mm3 (1.4-6.5); GRAN % 77.2 % (42.2-75.2); LYMPH # 1.1 K/mm3 (1.2-3.4); LYMPH % 12.1 % (20.0-51.0); MEAN CELL VOLUME 97 fl (80.0-100.0); MEAN CORPUSCULAR HGB CONC 32 g/dl (33.0-37.0); MEAN PLATELET VOLUME 8.9 fl (7.4-10.4); MONO # 0.8 K/mm3 (0.1-0.6); PLATELET COUNT 266 K/mm3 (130-400); RED BLOOD COUNT 2.59 M/mm3 (4.10-5.30); REDCELL DISTRIBUTION WIDTH-CV 16.8 % (11.5-14.5)
[2021-12-14 23:48] LABS: HEMOGLOBIN 8.1 g/dl (12.5-16.0); MEAN CORPUSCULAR HEMOGLOBIN 31 pg (27-31)
[2021-12-14 23:53] LABS: INR 1.1 (0.8-3.0); PROTHROMBIN TIME 12.6 SECONDS (9.7-12.8)
[2021-12-15 00:04] LABS: ALBUMIN 2.9 gm/dL (3.4-4.8); BILIRUBIN,TOTAL 0.6 mg/dL (0.2-1.2); C-REACTIVE PROTEIN 10.74 mg/dL (0.00-0.50); CALCIUM 9.1 mg/dL (8.4-10.2); CREATININE, serum 0.89 mg/dL (0.57-1.11); TOTAL PROTEIN 6.5 gm/dL (6.2-8.1)
[2021-12-15 00:50] VITALS: BP 144/78; PULSE 66
== END 2021-12-15 00:50 | disposition home or self-care (01) ==
LOC: COL.ER 23:08
PROVIDERS: Emergency Medicine
DX: R19.5 Other fecal abnormalities (principal); D64.9 Anemia, unspecified; E87.6 Hypokalemia; E11.9 Type 2 diabetes mellitus without complications; Z79.4 Long term (current) use of insulin
CPT/HCPCS: J7030

== ENCOUNTER → 2022-05-13 | Outpatient (CLI) | payer MEDICARE, MEDICAID ==
[~2022-05-13] MED LIST changes: +ARTIFICIAL TEAR15 M7 OP; +ASPERCREME ARTH50 GM TP; +ASPIRIN 81M81 MG/TA2 PO; -GOOD NEIGH1200 MG/15; +K-TAB20 PO; +MELATONIN ER10 MG PO; -MYLANTA 150 ML150 M1; +PERIACTIN 4MG TA4 MG PO; +RT ALBUTER2.5 MG/0.5 IH; +[UNRECOGNIZED DRUG - OTHER] OP; -[UNRECOGNIZED DRUG - OTHER] PO
== END ==
LOC: COL.RAD 12:30
DX: M67.824 Other specified disorders of tendon, left elbow (principal); M79.602 Pain in left arm; M25.522 Pain in left elbow

== ENCOUNTER 2022-06-03 06:26 | Day surgery (SDC) | payer MEDICARE, MEDICAID ==
[~2022-06-03] VITALS: Ht 158.8 cm; Wt 66.0 kg
[2022-06-03 08:20] VITALS: BP 153/63; PULSE 60; TEMP 98.6
[2022-06-03 08:35] VITALS: BP 154/68; PULSE 64
[2022-06-03 08:50] VITALS: BP 158/66; PULSE 62
--- NOTE | 2022-06-03 09:05 | NUR ---
0820 RETURNS TO ROOM 4 PER CART. AWAKE, ALERT. HOB ELEVATED 40 DEGREES. PATIENT REPOSITIONS SELF ON CART. RESP UNLABORED. DENIES NAUSEA, ABD PAIN OR DYSPHAGIA. VITAL SIGNS OBTAINED. 0830 TOLERATES PO JUICE AND MUFFIN WITHOUT NAUSEA. SWALLOWS WITHOUT DIFFICULTY 0832 DISCHARGE INSTRUCTIONS REVIEWED. PATIENT VERBALIZES UNDERSTANDING. COPY PROVIDED IN DISCHARGE FOLDER. 0841 DR. YOUNG HERE TO VISIT WITH PATIENT. 0850 SITS ON EDGE OF BED. DRESSES WITH ASSISTANCE OF THIS NURSE. THEN STANDTRANSFERS TO WHEELCHAIR. AWAITING ARRIVAL OF [facility]
[2022-06-03 13:03] VITALS: BP 153/67; PULSE 63; TEMP 98.6
== END 2022-06-03 09:05 | disposition home or self-care (01) ==
LOC: SDCO 06:26
DX: K22.2 Esophageal obstruction (principal); K21.00 Gastro-esophageal reflux disease with esophagitis, without bleeding; Z87.891 Personal history of nicotine dependence
CPT/HCPCS: C1726; J2704

== ENCOUNTER → 2022-12-21 | Outpatient (CLI) | payer MEDICARE, MEDICAID ==
[2022-12-21 13:53] LABS: BASO # 0.1 K/mm3 (0.0-0.2); BASO % 0.5 % (0.0-2.0); EOS # 0.2 K/mm3 (0.0-0.7); EOS % 2.5 % (0.0-4.0); GRAN # 5.7 K/mm3 (1.4-6.5); HEMATOCRIT 34.1 % (37.0-47.0); HEMOGLOBIN 11.3 g/dl (12.5-16.0); LYMPH # 2.6 K/mm3 (1.2-3.4); LYMPH % 28.7 % (20.0-51.0); MEAN CELL VOLUME 97 fl (80.0-100.0); MEAN CORPUSCULAR HEMOGLOBIN 32 pg (27-31); MEAN CORPUSCULAR HGB CONC 33 g/dl (33.0-37.0); MEAN PLATELET VOLUME 8.8 fl (7.4-10.4); MONO # 0.6 K/mm3 (0.1-0.6); PLATELET COUNT 401 K/mm3 (130-400); RED BLOOD COUNT 3.52 M/mm3 (4.10-5.30); REDCELL DISTRIBUTION WIDTH-CV 12.8 % (11.5-14.5)
[2022-12-21 14:07] LABS: ALBUMIN 3.6 gm/dL (3.4-4.8); BILIRUBIN,TOTAL 0.3 mg/dL (0.2-1.2); CALCIUM 10.5 mg/dL (8.4-10.2); CREATININE, serum 1.15 mg/dL (0.57-1.11); POTASSIUM 3.8 mmol/L (3.5-4.5); TOTAL PROTEIN 7.9 gm/dL (6.2-8.1)
== END ==
LOC: ZCOL.LAB 13:46
PROVIDERS: Internal Medicine
DX: D89.1 Cryoglobulinemia (principal)

== ENCOUNTER → 2023-03-21 | Outpatient (REF) | payer MEDICARE ==
[2023-03-21 17:30] LABS: COLLECTION METHOD CLEAN CATCH
[2023-03-21 17:32] LABS: ALBUMIN 3.4 gm/dL (3.4-4.8); BILIRUBIN,TOTAL 0.5 mg/dL (0.2-1.2); CALCIUM 10.4 mg/dL (8.4-10.2); CREATININE, serum 1.54 mg/dL (0.57-1.11); TOTAL PROTEIN 7.3 gm/dL (6.2-8.1)
[2023-03-21 17:35] LABS: BASO # 0.1 K/mm3 (0.0-0.2); BASO % 0.6 % (0.0-2.0); EOS # 0.4 K/mm3 (0.0-0.7); EOS % 4.3 % (0.0-4.0); HEMATOCRIT 29.8 % (37.0-47.0); HEMOGLOBIN 9.7 g/dl (12.5-16.0); LYMPH # 2.6 K/mm3 (1.2-3.4); LYMPH % 30.8 % (20.0-51.0); MEAN CELL VOLUME 100 fl (80.0-100.0); MEAN CORPUSCULAR HEMOGLOBIN 33 pg (27-31); MEAN CORPUSCULAR HGB CONC 33 g/dl (33.0-37.0); MEAN PLATELET VOLUME 9.1 fl (7.4-10.4); MONO # 0.5 K/mm3 (0.1-0.6); MONO % 6.1 % (1.7-9.3); PLATELET COUNT 326 K/mm3 (130-400); RED BLOOD COUNT 2.97 M/mm3 (4.10-5.30); REDCELL DISTRIBUTION WIDTH-CV 12.9 % (11.5-14.5)
[2023-03-21 17:53] LABS: PH 5.5 (5.0-8.5); SQUAMOUS EPITHELIAL 0-2 /hpf (0-10); URINE APPEARANCE Clear (CLEAR/HAZY); URINE BLOOD Negative (NEGATIVE); URINE COLOR Yellow (YELLOW); URINE GLUCOSE Negative (NEGATIVE); URINE KETONE Negative (NEGATIVE); URINE NITRATE Negative (NEGATIVE); URINE PROTEIN(semi-quant) Negative (NEGATIVE); URINE RBC 0-2 /hpf (0-2); URINE UROBILINOGEN 0.2 E.U/dL (0.2-1.0); URINE WBC 0-2 /hpf (0-2)
== END ==
LOC: ZCOL.LAB 16:47
PROVIDERS: Internal Medicine
DX: D81.9 Combined immunodeficiency, unspecified (principal)

== ENCOUNTER → 2023-03-24 | Outpatient (CLI) | payer MEDICARE | LOC: COL.RAD 10:06 | DX: S46.212D Strain of muscle, fascia and tendon of other parts of biceps, left arm, subsequent encounter (principal); M77.02 Medial epicondylitis, left elbow; M67.824 Other specified disorders of tendon, left elbow; X58.XXXD Exposure to other specified factors, subsequent encounter | CPT/HCPCS: J0665; J3301 ==

== ENCOUNTER → 2023-04-11 | Outpatient (REF) | payer MEDICARE ==
[2023-04-11 15:05] LABS: BASO % 0.3 % (0.0-2.0); EOS # 0.1 K/mm3 (0.0-0.7); EOS % 1.4 % (0.0-4.0); GRAN # 7.1 K/mm3 (1.4-6.5); LYMPH # 1.9 K/mm3 (1.2-3.4); LYMPH % 19.6 % (20.0-51.0); MEAN CELL VOLUME 98 fl (80.0-100.0); MEAN CORPUSCULAR HGB CONC 33 g/dl (33.0-37.0); MEAN PLATELET VOLUME 9.1 fl (7.4-10.4); MONO # 0.4 K/mm3 (0.1-0.6); MONO % 4.3 % (1.7-9.3); PLATELET COUNT 308 K/mm3 (130-400); RED BLOOD COUNT 3.07 M/mm3 (4.10-5.30); REDCELL DISTRIBUTION WIDTH-CV 12.9 % (11.5-14.5)
[2023-04-11 15:06] LABS: HEMOGLOBIN 9.9 g/dl (12.5-16.0); MEAN CORPUSCULAR HEMOGLOBIN 32 pg (27-31)
[2023-04-11 15:15] LABS: COLLECTION METHOD CLEAN CATCH; URINE APPEARANCE Clear (CLEAR/HAZY); URINE COLOR Yellow (YELLOW)
[2023-04-11 15:16] LABS: PH 5.5 (5.0-8.5); SQUAMOUS EPITHELIAL 0-2 /hpf (0-10); URINE BLOOD TRACE-INTACT (NEGATIVE); URINE GLUCOSE Negative (NEGATIVE); URINE KETONE Negative (NEGATIVE); URINE NITRATE Negative (NEGATIVE); URINE PROTEIN(semi-quant) 1+ (NEGATIVE); URINE RBC 0-2 /hpf (0-2); URINE UROBILINOGEN 0.2 E.U/dL (0.2-1.0)
[2023-04-11 15:30] LABS: ALBUMIN 3.3 gm/dL (3.4-4.8); BILIRUBIN,TOTAL 0.6 mg/dL (0.2-1.2); C-REACTIVE PROTEIN 15.49 mg/dL (0.00-0.50); CALCIUM 10.5 mg/dL (8.4-10.2); CREATININE, serum 1.34 mg/dL (0.57-1.11); POTASSIUM 4.7 mmol/L (3.5-4.5); TOTAL PROTEIN 7.1 gm/dL (6.2-8.1)
== END ==
LOC: ZCOL.LAB 12:03
PROVIDERS: Internal Medicine
DX: J44.1 Chronic obstructive pulmonary disease with (acute) exacerbation (principal)

== ENCOUNTER → 2023-07-19 | Outpatient (REF) | payer MEDICARE ==
[2023-07-19 12:50] LABS: BASO # 0.1 K/mm3 (0.0-0.2); BASO % 0.5 % (0.0-2.0); EOS # 0.1 K/mm3 (0.0-0.7); EOS % 1.3 % (0.0-4.0); GRAN # 5.9 K/mm3 (1.4-6.5); HEMOGLOBIN 10.3 g/dl (12.5-16.0); LYMPH # 3.2 K/mm3 (1.2-3.4); LYMPH % 32.6 % (20.0-51.0); MEAN CELL VOLUME 106 fl (80.0-100.0); MEAN CORPUSCULAR HEMOGLOBIN 34 pg (27-31); MEAN CORPUSCULAR HGB CONC 32 g/dl (33.0-37.0); MEAN PLATELET VOLUME 9.4 fl (7.4-10.4); MONO # 0.6 K/mm3 (0.1-0.6); MONO % 6.1 % (1.7-9.3); PLATELET COUNT 254 K/mm3 (130-400); RED BLOOD COUNT 3.01 M/mm3 (4.10-5.30); REDCELL DISTRIBUTION WIDTH-CV 13.1 % (11.5-14.5)
[2023-07-19 13:00] LABS: HEMATOCRIT 31.8 % (37.0-47.0)
[2023-07-19 13:24] LABS: ALBUMIN 3.5 g/dL (3.4-4.8); CALCIUM 9.4 mg/dL (8.4-10.2); CREATININE, serum 1.54 mg/dL (0.57-1.11); PHOSPHOROUS 3.6 mg/dL (2.3-4.7); POTASSIUM 4.2 mEq/L (3.5-4.5); URIC ACID 6.3 mg/dL (2.6-6.0)
== END ==
LOC: ZCOL.LAB 11:36
PROVIDERS: Internal Medicine
DX: E11.9 Type 2 diabetes mellitus without complications (principal)